=== PATIENT | male | born 1975 | race Caucasian/White ===

== ENCOUNTER → 2022-05-25 11:16 | Outpatient (BNVA) | payer OTHER, SELFPAY | PROVIDERS: Visit Provider Nurse Practitioner Family | DX: M25.50 Pain in unspecified joint (principal); M79.10 Myalgia, unspecified site; R53.83 Other fatigue; Z82.61 Family history of arthritis; F42.9 Obsessive-compulsive disorder, unspecified; F41.9 Anxiety disorder, unspecified; G47.00 Insomnia, unspecified; E78.2 Mixed hyperlipidemia | CPT/HCPCS: 80053; 80061; 85651; 86140; 86200; 86431; 86705; 86706; 86709; 86803; 87340 ==

== ENCOUNTER 2022-08-03 09:38 | Outpatient (CLI) | payer OTHER, SELFPAY ==
--- NOTE | 2022-08-03 10:00 | USCV_ITS ---
[facility] Age: 47 Gender: M : 1975 Exam Date: 08/03/2022 10:01 Ordering Phys: Caity Mares NP Technologist: AB Exam Location: [facility] – [place] Indication: DIZZINESS Risk Factors: Previous Vascular Surgery: Right Brachial BP: / Left Brachial BP: / Right Left Velocity (cm/s) Spectral Plaque Velocity (cm/s) Spectral Plaque Syst/Diast Broadening Syst/Diast Broadening 104.70/30.90 Prox CCA 100.30/ 35.30 90.40/ 34.20 Mid CCA 105.80/ 38.60 74.60/ 27.20 Distal CCA 84.90 / 36.40 89.70/ 29.10 Prox ICA 91.50 / 29.80 78.60/ 38.50 Mid ICA 73.90 / 37.50 70.10/ 36.70 Distal ICA 97.00 / 52.90 90.60 ECA 98.10 0.86 ICA/CCA 0.92 Antegrade Vertebral Antegrade 41.90/ 22.20 cm/s 65.10/ 32.00 cm/s Tri Subclavian Tri 119.1 108.8 0 0 CONCLUSIONS Right ICA stenosis <50%. Left ICA stenosis <50%. Normal antegrade Doppler flow noted in the right vertebral artery. Normal antegrade Doppler flow noted in the left vertebral artery. Quirino Payne MD (Electronically Signed) Final Date: 03 August 2022 13:29 S
== END 2022-08-03 09:39 | disposition home or self-care (01) ==
LOC: RAD 09:38
PROVIDERS: PCP Nurse Practitioner Family; Visit Provider Nurse Practitioner Family
DX: R42 Dizziness and giddiness (principal); E78.2 Mixed hyperlipidemia
CPT/HCPCS: 93880

== ENCOUNTER 2022-10-05 05:01 | Inpatient (IN) | payer OTHER, SELFPAY ==
[2022-10-05] VITALS (10 sets, daily range): BP systolic 105–123; BP diastolic 68–91; PULSE 62–91; RESP 14–18; TEMP 36.4–36.9; O2SAT 96–99; BMI 27.8
--- NOTE | 2022-10-05 05:15 | W.ED.EXTPRO ---
HPI - Extremity Problem General: Chief complaint: Extremity Injury, Upper Stated complaint: Finger injury on Right hand Time Seen by Provider: 10/05/22 05:03 Source: patient Mode of arrival: ambulatory Limitations: no limitations History of Present Illness: 47-year-old male who states that he cut his right middle finger on a piece of tin 3 days ago he states he has been taking IM Rocephin shots daily but he has had increased swelling along with pain denies any fever he states that he has pain with any movement. He states the pain is improved with rest rates his pain a 5 out of 10 currently Associated symptoms: Deny chest pain, fever(s) or rash Review of Systems Const: Denies: fever(s), chills, body aches or change in appetite Eyes: Denies: blurry vision or eye discomfort ENMT: Denies: throat pain or dental pain Card: Denies: chest pain Resp: Denies: dyspnea GI: Denies: abdominal pain, nausea, vomiting or diarrhea : Denies: dysuria Musc: Reports: extremity pain; Denies: neck pain or back pain Skin/Breast: Denies: rash Neuro: Denies: headache(s) Psych: Denies: depression Noam/Lymph: Denies: easy bruising All/Imm: Denies: urticaria PFSH ED PFSH: Medical History History of kidney stones Polyarthralgia Polycythemia Surgical History History of nasal surgery History of ureter stent Hx of facial fracture repair Family History Father Diabetes Hypertension Grandfather Diabetes Hypertension Cancer prostate Grandmother Cancer Hypertension Mother Hypertension Denies family history of Clotting disorder Bleeding disorder Social History Smoking and tobacco status: never smoked Second hand smoke exposure: No Alcohol intake: never Caregiver/support person: Yes Lives independently: Yes Household members: spouse Marital status: service: No Current occupational status: employed Pets and animals: Yes History of recent travel: No Current gender identity: Male Special ely needs: No Agree to transfusion: Yes Physical Exam Const: COMMON NORMALS: no acute distress, patient oriented x3 and healthy appearing HENMT: COMMON NORMALS: normocephalic and atraumatic HEAD & SCALP: normocephalic and atraumatic Eye: COMMON NORMALS: Equal, round and reactive pupils present and EOMs intact bilaterally PUPIL: Yes Equal, round and reactive pupils present Neck/C-Spine: COMMON NORMALS: full ROM and supple Chest: COMMONS NORMALS: normal inspection of the chest Resp: COMMON NORMALS: normal respiratory effort Cardio: COMMON NORMALS: regular rate, regular rhythm and No murmurs present (Cardio) RATE: regular rate RHYTHM: regular rhythm GI: INSPECTION: Yes normal to inspection Extremity: NARRATIVE EXTREMITY EXAM: Healing laceration to palmar aspect of the right middle digit he does have swelling along with erythema and pain to that finger. Neuro: COMMON NORMALS: patient oriented x3, moves all extremities and no focal motor deficits Psych: COMMON NORMALS: mental status grossly normal, Normal thought process present and cooperative THOUGHT PROCESS: Normal thought process present Skin: COMMON NORMALS: no rashes or lesions noted and no wounds GENERAL SKIN EXAM: no rashes or lesions noted Course Vital Signs: Vital signs: Vital Signs Temperature 97.6 F 10/05/22 05:08 Pulse Rate 80 10/05/22 05:12 Respiratory Rate 17 10/05/22 05:12 Blood Pressure 121/76 10/05/22 05:08 Pulse Oximetry 96 10/05/22 05:12 Oxygen Delivery Me thod 10/05/22 05:12 MDM - Extremity (Nontraumatic) Medical Decision Making Patient presents here with cellulitis to right middle finger with concerns of a possible early flexor tenosynovitis. I spoke to orthopedist we will plan to admit on IV antibiotics place in a splint and he will see patient for serial exams patient admitted to the hospitalist with orthopedics consulted. Discharge Plan Discharge Patient Disposition: Admitted As Inpatient Clinical Impression: Cellulitis of finger Qualifiers: Laterality: right Qualified Code(s): L03.011 - Cellulitis of right finger Condition: Stable Prescriptions: No Action diphenhydramine-acetaminophen [Tylenol PM Extra Strength] 25-500 mg tablet 1 tab PO .hs PRN zolpidem [Ambien] 10 mg tablet 10 mg PO .QHS 30 Days Qty: 30 0RF sertraline 100 mg tablet See Rx Instructions .ROUTE .COMPLEX Qty: 45 5RF Dose Instruction: TAKE 1 AND 1/2 TABLETS BY MOUTH DAILY Rx Instructions: TAKE 1 AND 1/2 TABLETS BY MOUTH DAILY meloxicam 15 mg tablet 15 mg PO DAILY 90 Days Qty: 90 1RF simvastatin 20 mg tablet 20 mg PO .QHS 90 Days Qty: 90 1RF cephalexin 500 mg capsule 500 mg PO TID Qty: 30 0RF Coding Level of Care Code ED Pesticide Chemist for Chg Fwd Exam Comprehensive
[2022-10-05] MEDS: vancomycin 1,000 MG in sodium chloride 0.9% 250 ML 250 MG IV (05:30)
[2022-10-05 05:45] LABS: Basophils % 0.3 %; Eosinophils # 0.6 10^3/uL (0.0-0.8); Eosinophils % 6.9 %; Hematocrit 41.7 % (42.0-52.0); Hemoglobin 14.6 g/dL (11.7-16.6); Lymphocytes % 11.4 %; Mean Corpuscular Hemoglobin 31.3 pg (28.0-34.0); Mean Corpuscular Volume 89.5 fl (80-94); Mean Platelet Volume 9.4 fL (7.4-10.4); Monocytes # 0.6 10^3/uL (0.2-0.9); Monocytes % 6.7 %; Neutrophils # 6.79 10^3/uL (1.8-7.7); Neutrophils % 74.2 %; Nucleated Red Blood Cells % 0 %; Platelet Count 210 10^3/cmm (130-400); Red Blood Count 4.66 10^6/uL (4.1-5.3); Red Cell Distribution Width 12.1 % (12.1-15.1); White Blood Count 9.2 10^3/uL (4.0-10.0)
[2022-10-05 05:46] LABS: Erythrocyte Sedimentation Rate 39 mm/hr (0-10)
--- NOTE | 2022-10-05 05:51 | PM.HP ---
Providers/Chief Complaint Admitting Physician: Akash Sánchez Chief Complaint: Finger injury on Right hand History of Present Illness Pleasant 47-year-old gentleman presented to ER due to swelling, warmth, erythema, severe tenderness of right middle finger after an injury about a week ago with a piece of metal. He has been seen by his primary provider has been taking Keflex, in the last 3 days also has been receiving Rocephin injections. Initially swelling had gone down, however, in the last day or so it has worsened again. He states he has been having fever spikes at home, he was having night sweats last night. He has been having some nausea. He also feels that perhaps antibiotics had made him constipated. He is able to move the finger, although it is quite swollen, and very tender to touch. Review of Systems Const: Reports: fever(s) and diaphoresis Eyes: Denies: change in vision, eye discomfort or eye redness ENMT: Denies: throat pain, oral sores or ear or mastoid pain Card: Denies: chest pain, edema, pre-syncope or dyspnea on exertion Resp: Denies: dyspnea, productive cough, change in phlegm color or hemoptysis GI: Reports: nausea and constipation; Denies: abdominal pain, vomiting, diarrhea, hematochezia or melena : Denies: flank pain, difficulty urinating, urinary frequency or hematuria Musc: Reports: extremity pain, extremity swelling and limited range of motion; Denies: back pain, joint swelling or joint redness Skin/Breast: Denies: rash or new lesions Neuro: Denies: headache(s), numbness in extremities, weakness in extremities, dizziness, confusion or seizure-like activity Endo: Denies: polyuria or polydipsia Noam/Lymph: Denies: easy bleeding or tender lymph nodes All/Imm: Denies: urticaria or tongue swelling Medications/Allergies Home Medications Medication Instructions Recorded Confirmed Last Taken Type diphenhydramine 25 1 tab PO .hs PRN 04/07/21 05/25/22 Unknown History mg-acetaminophen 500 mg tablet (Tylenol PM Extra Strength) meloxicam 15 mg tablet 15 mg PO DAILY 90 days #90 tabs 05/25/22 05/25/22 Unknown Rx sertraline 100 mg tablet See Rx Instructions .Route 06/30/22 06/30/22 Unknown Rx .COMPLEX #45 tabs simvastatin 20 mg tablet 20 mg PO .QHS 90 days #90 tabs 05/25/22 Unknown Rx zolpidem 10 mg tablet (Ambien) 10 mg PO .QHS 30 days #30 tabs 05/25/22 05/25/22 Unknown Rx cephalexin 500 mg capsule 500 mg PO TID #30 caps 10/02/22 Unknown Rx Allergies Allergy/AdvReac Type Severity Reaction Status Date / Time No Known Allergies Allergy Verified 10/05/22 05:11 PFSH Acute PFSH: Medical History History of kidney stones Polyarthralgia Polycythemia Surgical History History of nasal surgery History of ureter stent Hx of facial fracture repair Family History Father Diabetes Hypertension Grandfather Diabetes Hypertension Cancer prostate Grandmother Cancer Hypertension Mother Hypertension Denies family history of Clotting disorder Bleeding disorder Social History Smoking and tobacco status: never smoked Second hand smoke exposure: No Alcohol intake: never Caregiver/support person: Yes Lives independently: Yes Household members: spouse Marital status: service: No Current occupational status: employed Pets and animals: Yes History of recent travel: No Current gender identity: Male Special ely needs: No Agree to transfusion: Yes Vitals/I&O/Wt Last Vital Signs Temp 97.6 F 10/05/22 05:08 Pulse 82 10/05/22 05:46 Resp 16 10/05/22 05:46 BP 108/91 10/05/22 05:46 Pulse Ox 99 10/05/22 05:46 O2 Del Method 10/05/22 05:46 Weight last 48 hrs Weight 90.718 kg Physical Exam Narrative: Accompanied by his . Const: COMMON NORMALS: patient oriented x3 and alert GENERAL APPEARANCE: cooperative ORIENTATION/CONSCIOUSNESS: Yes awake HENMT: COMMON NORMALS: oropharynx normal Neck/C-Spine: COMMON NORMALS: no JVD Resp: COMMON NORMALS: normal respiratory effort and clear to auscultation bilaterally AUSCULTATION: clear to auscultation bilaterally Cardio: COMMON NORMALS: no JVD, regular rhythm, S1 normal heart sound present, S2 normal heart sound present and No murmurs present (Cardio) RHYTHM: regular rhythm HEART SOUNDS: S1 normal heart sound present and S2 normal heart sound present GI: COMMON NORMALS: Normal to inspection, nondistended, normoactive bowel sounds present, Soft to palpation and non-tender PALPATION: Yes Soft to palpation Extremity: COMMON NORMALS: no joint enlargement and no pedal edema OTHER: Swelling, erythema, warmth right third digit, horizontal cut without purulent discharge on palmar surface of proximal phalanx. Tender on palpation. Neuro: COMMON NORMALS: patient oriented x3 and moves all extremities SENSORIUM/ORIENTATION: Yes alert Skin: COMMON NORMALS: no rashes or lesions noted GENERAL SKIN EXAM: no rashes or lesions noted Data : 10/05/22 05:25 10/05/22 05:25 A&P Assessment and plan (1) Cellulitis of finger: Concern for possible tenosynovitis. Cellulitis, wound infection of third middle finger. Not responsive to cephalexin and ceftriaxone injections last 3 days. Continue Mata antibiotics with Zosyn, vancomycin. Orthopedic assessment. Splint is placed in ER. Qualifiers: Laterality: right Qualified Code(s): L03.011 - Cellulitis of right finger Plan Fever Nausea: Antiemetic as needed Constipation: MiraLAX. Magnesium hydroxide as needed. Reduced GFR: Denies CKD, but states chronically reduced GFR. Discussed with him to avoid NSAIDs including meloxicam. Attestations Medical Necessity Statement*: Admission of over 2 midnights anticipated for assessment management of an improving cellulitis despite outpatient treatment with antibiotics, including IM antibiotic injections with ceftriaxone, possible tenosynovitis of middle finger of right hand. Coding Level of Care Code Acute Hooker Inspector for zulema Agudelo Diagnoses Cellulitis of finger L03.011 Laterality: right
[2022-10-05 05:56] LABS: Anion Gap 15.7 (5-19); Blood Urea Nitrogen 18 mg/dL (6-20); C Reactive Protein 70.1 mg/L (0.0-4.9); Carbon Dioxide 23 mmol/L (22-29); Chloride 104 mmol/L (98-107); Glomerular Filtration Rate 58.9 mL/min (90-130); Glucose 111 mg/dL (65-115); Osmolality Calculated 291 mOsm/kg (285-295); Potassium 3.7 mmol/L (3.5-5.1); Sodium 139 mmol/L (136-145)
[2022-10-05] MEDS: piperacillin-tazobactam 3.375 GM in sodium chloride 0.9% (plus) 50 ML IV ×3 (06:30→21:05)
[2022-10-05] MEDS: heparin 5,000 unit/mL INJ 1 mL 5000 UNIT SUBCUT ×2 (09:27→21:06)
[2022-10-05] MEDS: polyethylene glycol 3350 Pkt 17 gm PO ×2 (09:27→18:10)
--- NOTE | 2022-10-05 10:40 | P.CONIM_ITS ---
Providers/Reason For Consult Consulting Physician/Specialty*: Kael Botello DO/orthopedic surgery Reason for Consult*: Right middle finger infection (rule out flexor teno synovitis) Requesting Physician: Dr. Mary Leiva Attending Physician: Edwin Burdick MD History of Present Illness History of Present Illness Sam Ulloa is a 47 year old male who presents to the emergency depart [facility] with complaints of right middle finger infection. Patient states that roughly a week ago he had a cut on the volar aspect of his middle finger just proximal to the PIP joint. He states this was superficial he had no decrease sensation and was able to move afterwards. This was left alone he states he was doing okay except for a couple days ago started to look red and swollen and tender to palpation. He had decreased range of motion. He was given p.o. antibiotics for the past 3 days. He has failed p.o. antibiotics and due to this worsening and becoming more painful he presented to emergency department for evaluation. Emergency department team concern for patient having right middle finger flexor tenosynovitis. At this point time internal medicine was contacted and patient was admitted for IV antibiotics due to failure to respond to conservative treatment. Orthopedic surgery team was consulted for evaluation. On review of patient's labs WBC count 9.2, ESR 39 CRP 70. Patient's been placed in a volar splint and elevated. He has been started on IV antibiotics orthopedic surgery team was consulted. Patient denies any fevers chills chest pain shortness of breath nausea or vomiting Review of Systems General: Reports: 10 or more systems reviewed and unremarkable except in HPI and below Medications/Allergies Home Medications Medication Instructions Recorded Confirmed Last Taken Type diphenhydramine 25 1 tab PO BEDTIME PRN Pain 04/07/21 10/05/22 Unknown History mg-acetaminophen 500 mg tablet (Tylenol PM Extra Strength) meloxicam 15 mg tablet 15 mg PO DAILY 90 days #90 tabs 05/25/22 10/05/22 Unknown Rx cephalexin 500 mg capsule 500 mg PO TID #30 caps 10/02/22 10/05/22 Unknown Rx sertraline 100 mg tablet 150 mg PO DAILY 10/05/22 10/05/22 Unknown History Allergies Allergy/AdvReac Type Severity Reaction Status Date / Time No Known Allergies Allergy Verified 10/05/22 08:56 Current Medications Generic Name Dose Route Start Last Admin Trade Name Freq PRN Reason Stop Dose Admin Heparin Sodium (Porcine) 5,000 unit 10/05/22 08:24 10/05/22 09:27 Heparin 5,000 Unit/Ml Inj 1 Ml SUBCUT 5,000 unit Q12H TENZIN Administration Polyethylene Glycol 17 gm 10/05/22 09:00 10/05/22 09:27 Polyethylene Glycol 3350 Pkt 17 Gm PO 17 gm BID TENZIN Administration PFSH Acute PFSH: Medical History (Updated 10/05/22 @ 22:13 by Kael Botello DO) Flexor tenosynovitis of finger History of kidney stones Polyarthralgia Polycythemia Surgical History History of nasal surgery History of ureter stent Hx of facial fracture repair Family History Father Diabetes Hypertension Grandfather Diabetes Hypertension Cancer prostate Grandmother Cancer Hypertension Mother Hypertension Denies family history of Clotting disorder Bleeding disorder Social History Smoking and tobacco status: never smoked Second hand smoke exposure: No Alcohol intake: never Caregiver/support person: Yes Lives independently: Yes Household members: spouse Marital status: service: No Current occupational status: employed Pets and animals: Yes History of recent travel: No Current gender identity: Male Special ely needs: No Agree to transfusion: Yes Vitals/I&O/Wt Last Vital Signs Temp 97.9 F 10/05/22 08:24 Pulse 62 10/05/22 08:24 Resp 16 10/05/22 08:24 BP 123/78 10/05/22 08:24 Pulse Ox 97 10/05/22 08:24 O2 Del Method 10/05/22 06:45 10/04/22 10/05/22 10/05/22 22:59 06:59 14:59 Intake Total 300 / 300 Balance 300 / 300 Weight last 48 hrs Weight 200 lb Weight 200 lb Physical Exam Narrative: Examination of the right hand demonstrates fusiform swelling of the right middle finger. Patient is holding right middle finger in flexed postur ing. He has severe pain with passive range of motion of the finger. He has severe tenderness to palpation along the flexor tendon sheath of the right middle finger. He has severe tenderness to palpation over the A1 mandie. He has a superficial laceration over the palmar aspect just proximal to the PIP joint of the right middle finger this appears to be well-healed. Unable to assess flexion and extension secondary to patient's pain. He is unable to make a fist due to pain and swelling. Fingertips are warm and well-perfused. Sensation intact to light touch distally at the radial and ulnar digital nerves. Sensation intact light touch the radial/ulnar/median nerve distribution. Patient has no tenderness over the carpal tunnel of the hypothenar eminence or the thenar eminences. No deep hand space abscess noted. He has no tenderness palpation over the adjacent A1 pulleys of the index and ring finger. He has no erythema tracking proximally. He does appear to have palpable fluctuance over the palmar aspect of the middle finger, near laceration. Const: COMMON NORMALS: no acute distress and average body habitus HENMT: COMMON NORMALS: normocephalic and atraumatic HEAD & SCALP: normocephalic and atraumatic Resp: COMMON NORMALS: normal respiratory effort and No retractions Cardio: COMMON NORMALS: Peripheral pulses 2+ throughout PERIPHERAL PULSES: Peripheral pulses 2+ throughout Data : 10/05/22 05:25 10/05/22 05:25 Xray Ortho: My impression: Review of the x-rays of the right hand 3 views personally interpreted by myself demonstrating no acute fracture dislocation bony erosions. There is no foreign bodies noted. There is fusiform swelling noted at the right middle finger. A&P Assessment and plan (1) Cellulitis of finger: Qualifiers: Laterality: right Qualified Code(s): L03.011 - Cellulitis of right finger (2) Flexor tenosynovitis of finger: Plan Patient may have diet today, n.p.o. at midnight Patient elevated in volar splint and elevated above the level of the heart Ice as needed Pain control IV antibiotics Labs reviewed Internal medicine is primary X-ray reviewed Reevaluate tomorrow morning, n.p.o. at midnight if patient fails to clinically improve will need OR for right middle finger irrigation and debridement flexor tendon sheath MDM: Sam is a pleasant 47-year-old gentleman who sustained a laceration to the palmar aspect of his right middle finger. This is progressively worsened he was treated with outpatient antibiotics and failed to respond to conservative treatment. He presented the emergency department concerning findings for right middle finger infection possible flexor tenosynovitis. He was placed in a volar splint elevation IV antibiotics as well as pain medication to see how he responds to conservative treatment. He is was given a diet today. He is n.p.o. at midnight. On my evaluation he does have a noticeable right middle finger infection. Does have some palpable fluctuance over the palmar aspect of P1. He does have all 4 Knievel signs on examination. At this point time we will see how he responds to conservative treatment today will be n.p.o. at midnight and r echeck tomorrow morning. Patient and understand agree with current plan. All questions answered at this time. Consult Attestations Medical Necessity Statement: Patient has right middle finger infection requiring antibiotics Coding Level of Care Code Acute Water/Wastewater Project Manager for Lydia Agudelo Diagnoses Cellulitis of finger L03.011 Laterality: right Flexor tenosynovitis of finger M65.9 Time Spent (min) 50
--- NOTE | 2022-10-05 12:17 | XR_ITS ---
WS: [id number] Right hand, 3 views, 10/05/2022 Clinical Data: right finger infection Comparison: None. Findings: No fractures or dislocations are seen. The soft tissues are unremarkable. The joint space s are normal No bone destruction or erosion is seen. XR/XR hand RT min 3V* [id number] Impression: Negative right hand.
[2022-10-05] MEDS: acetaminophen 325 mg Tablet 650 MG PO (14:33)
[2022-10-05] MEDS: HYDROcodone-acetaminophen 5-325 mg Tablet 1 TAB PO ×2 (16:33→21:04)
[2022-10-05] MEDS: vancomycin 1,500 MG/300 ML PIGGYBACK 200 MG IV (16:36)
[2022-10-05] MEDS: sertraline 100 mg Tablet 150 MG PO (21:03)
[2022-10-06] VITALS (13 sets, daily range): BP systolic 116–160; BP diastolic 70–95; PULSE 75–110; RESP 15–18; TEMP 36.3–37.3; O2SAT 95–100
[2022-10-06] MEDS: HYDROcodone-acetaminophen 5-325 mg Tablet 1 TAB PO (01:20)
[2022-10-06] MEDS: vancomycin 1,500 MG/300 ML PIGGYBACK 200 MG IV ×2 (04:29→17:53)
[2022-10-06 06:00] LABS: Basophils # 0.1 10^3/uL (0.0-0.1); Basophils % 0.8 %; Eosinophils # 0.6 10^3/uL (0.0-0.8); Hemoglobin 14.2 g/dL (11.7-16.6); Lymphocytes # 1.5 10^3/uL (0.8-4.8); Lymphocytes % 20.1 %; Mean Corpuscular HGB Conc 33.8 g/dL (30.0-36.0); Mean Corpuscular Hemoglobin 30.5 pg (28.0-34.0); Mean Corpuscular Volume 90.3 fl (80-94); Mean Platelet Volume 9.1 fL (7.4-10.4); Monocytes # 0.6 10^3/uL (0.2-0.9); Monocytes % 7.9 %; Neutrophils # 4.79 10^3/uL (1.8-7.7); Neutrophils % 62.7 %; Nucleated Red Blood Cells % 0 %; Platelet Count 223 10^3/cmm (130-400); Red Blood Count 4.65 10^6/uL (4.1-5.3); Red Cell Distribution Width 12.1 % (12.1-15.1); White Blood Count 7.6 10^3/uL (4.0-10.0)
[2022-10-06 06:25] LABS: Anion Gap 12.7 (5-19); Blood Urea Nitrogen 10 mg/dL (6-20); Calcium 8.9 mg/dL (8.5-10.5); Carbon Dioxide 27 mmol/L (22-29); Chloride 102 mmol/L (98-107); Creatinine Clr Calc Pharmacy 86.7475; Glomerular Filtration Rate 64.6 mL/min (90-130); Glucose 101 mg/dL (65-115); Osmolality Calculated 285 mOsm/kg (285-295); Potassium 3.7 mmol/L (3.5-5.1); Sodium 138 mmol/L (136-145)
[2022-10-06] MEDS: piperacillin-tazobactam 3.375 GM in sodium chloride 0.9% (plus) 50 ML IV ×2 (06:34→20:56)
[2022-10-06] MEDS: heparin 5,000 unit/mL INJ 1 mL 5000 UNIT SUBCUT ×2 (08:46→20:57)
[2022-10-06] MEDS: sertraline 100 mg Tablet 150 MG PO (08:46)
[2022-10-06] MEDS: ceFAZolin 2,000 MG in sodium chloride 0.9% (plus) 50 ML 100 MG IV (08:46)
[2022-10-06] MEDS: ketorolac 30 mg/mL INJ IVP (08:47)
[2022-10-06] MEDS: acetaminophen 1,000 MG/100 ML PIGGYBACK 400 MG IV (08:48)
[2022-10-06] MEDS: polyethylene glycol 3350 Pkt 17 gm PO ×2 (08:49→17:52)
--- NOTE | 2022-10-06 09:43 | PM.PN ---
Subjective Subjective: Patient seen and examined this morning. Persistent pain overnight controlled with medications. Patient has been on IV antibiotics elevation and volar splint overnight. States he has had minimal to no improvement with conservative treatment. Has been n.p.o. since midnight. Plan will be for surgery today for right middle finger irrigation and debridement Vitals/I&O/Wt Last Vital Signs Temp 98.7 F 10/06/22 07:12 Pulse 75 10/06/22 07:12 Resp 18 10/06/22 07:12 BP 133/79 10/06/22 07:12 Pulse Ox 96 10/06/22 07:12 O2 Del Method 10/06/22 07:12 10/05/22 10/06/22 10/06/22 22:59 06:59 14:59 Intake Total 590 / 590 350 / 940 Output Total 650 / 775 Balance 590 / 465 -300 / 165 Weight last 48 hrs Weight 200 lb Weight 200 lb Physical Exam Narrative: Examination of the right middle finger continues to show persistent fusiform swelling palpable fluctuance on the palmar aspect of the right middle finger. Erythema and redness around the middle finger. Tenderness over the A1 mandie no carpal tunnel hypothenar and thenar eminence tenderness to palpation no tenderness palpation at the spaces of the hand. Flexed posturing and pain on passive extension. Sensation tact light touch distally. He is able to slightly bend and extend consistent with flexor extensor tendons intact however limited examination secondary to his pain infection radial pulse 2+. Brisk capillary refill less than 2 seconds at the fingers. Data : 10/06/22 05:45 10/06/22 05:45 A&P Assessment and plan (1) Flexor tenosynovitis of finger: (2) Cellulitis of finger: Qualifiers: Laterality: right Qualified Code(s): L03.011 - Cellulitis of right finger Plan N.p.o. since midnight IV antibiotics Pain control Elevation Ice Volar splint Internal medicine is primary Nonweightbearing right upper extremity Patient's failed to respond to conservative treatment. He was seen evaluated this morning. Given his lack of clinical improvement persistent signs consistent with flexor tenosynovitis would recommend right middle finger irrigation and debridement. We talked about the surgery as far as his risk benefits complication alternatives to treatment options. His risks of surgery include but are not limited to make it better make it worse, worsening infection further surgeries, injury to nerves or vessels, injury to tendons. Understanding these risks he agrees to proceed with surgical intervention. All questions been answered at this time. Plan to go to the OR later this morning for right middle finger irrigation and debridement Attestations Medical Necessity Statement*: Patient has right middle finger infection flexor tenosynovitis requiring hospitalization for IV antibiotics and surgical intervention Coding Level of Care Code Acute Independent Jeweler for [facility] Diagnoses Flexor tenosynovitis of finger M65.9 Cellulitis of finger L03.011 Laterality: right Time Spent (min) 25
--- NOTE | 2022-10-06 09:48 | W.PM.OPSUD ---
Surgery/Procedure H&P Update DATE OF PROCEDURE: October 06, 2022 DATE H&P PERFORMED: 10/05/22 CHANGES TO PREVIOUS DOCUMENTATION: None. All 4 Knievel signs with failure to respond to conservative treatment PREOP DIAGNOSIS: Right middle finger flexor tenosynovitis with abscess PRIMARY INDICATION FOR PROCEDURE: Right middle finger flexor tenosynovitis with abscess PLANNED PROCEDURE: Operation Date: 10/06/22 12:10 Proposed Procedures p I&D right middle finger(Right) - Kael Botello DO
[2022-10-06] MEDS: sodium chloride 0.9% 1,000 ML 30 ML IV (12:01)
--- NOTE | 2022-10-06 13:46 | ANES.PREANE2 ---
Pre-Anesthetic Assessment Height/Weight: Height 1.8 m Weight 90.718 kg Temp Pulse Resp BP Pulse Ox O2 Del Method 98.7 F 75 18 133/79 96 10/06/22 07:12 10/06/22 07:12 10/06/22 07:12 10/06/22 07:12 10/06/22 07:12 10/06/22 07:12 Preop Diagnosis: Right middle finger flexor tenosynovitis with abscess Operation Date: 10/06/22 12:10 Proposed Procedures p I&D right middle finger(Right) - Kael Ayan, DO Familial anesthetic complications: none Was Beta Cindy taken within 24 hours: N/A Was Clonidine taken within 24 hours: N/A Last intake: Intake Last Liquid Date 10/06/22 Last Liquid Time 08:00 Last Solid Date 10/05/22 Last Solid Time 22:00 Social No alcohol and No tobacco Exam alert, oriented x 3, clear to auscultation bilaterally and regular rate & rhythm Airway Submandibular: within normal limits Cervical ROM: within normal limits Mallampati: Class II Dentition: chipped Musc/skel Osteoarthritis/DJD Neuropsych Anxiety Anesthetic Plan ASA status: 2 Anesthesia: General Medications/Allergies Home Medications Medication Instructions Recorded Confirmed Last Taken Type diphenhydramine 25 1 tab PO BEDTIME PRN Pain 04/07/21 10/05/22 Unknown History mg-acetaminophen 500 mg tablet (Tylenol PM Extra Strength) meloxicam 15 mg tablet 15 mg PO DAILY 90 days #90 tabs 05/25/22 10/05/22 Unknown Rx cephalexin 500 mg capsule 500 mg PO TID #30 caps 10/02/22 10/05/22 Unknown Rx sertraline 100 mg tablet 150 mg PO DAILY 10/05/22 10/05/22 Unknown History Allergies Allergy/AdvReac Type Severity Reaction Status Date / Time No Known Allergies Allergy Verified 10/05/22 08:56 Current Medications Generic Name Dose Route Start Last Admin Trade Name Freq PRN Reason Stop Dose Admin Acetaminophen 650 mg 10/05/22 08:24 10/05/22 14:33 Acetaminophen 325 Mg Tablet PO 650 mg Q6H PRN Administration Mild/Mod Pain Or Temp >/= 101 Hydrocodone Bitart/Acetaminophen 1 tab 10/05/22 16:21 10/06/22 01:20 Hydrocodone-Acetaminophen 5-325 Mg Tablet PO 1 tab Q4H PRN Administration MODERATE PAIN Heparin Sodium (Porcine) 5,000 unit 10/05/22 08:24 10/06/22 08:46 Heparin 5,000 Unit/Ml Inj 1 Ml SUBCUT 5,000 unit Q12H TENZIN Administration Piperacillin Sod/Tazobactam 50 mls @ 12.5 mls/hr 10/05/22 13:30 10/06/22 06:34 Sod 3.375 gm/ Sodium Chloride IV 12.5 mls/hr Q8H TENZIN Administration Protocol Vancomycin/PEG/NADA/Lysine/Water 1,500 mg in 300 mls @ 200 mls/hr 10/05/22 17:00 10/06/22 06:13 Vancocin IV Infused Q12H TENZIN Infusion Sodium Chloride 1,000 mls @ 30 mls/hr 10/06/22 12:00 10/06/22 12:01 Sodium Chloride 0.9% IV 10/07/22 11:59 30 mls/hr .Q24H TENZIN Administration Polyethylene Glycol 17 gm 10/05/22 09:00 10/06/22 08:49 Polyethylene Glycol 3350 Pkt 17 Gm PO 17 gm BID TENZIN Administration Sertraline HCl 150 mg 10/05/22 21:00 10/06/22 08:46 Sertraline 100 Mg Tablet PO 150 mg DAILY TENZIN Administration PFSH Anesthesia Medical History (Updated 10/05/22 @ 22:13 by Kael Botello DO) Flexor tenosynovitis of finger History of kidney stones Polyarthralgia Polycythemia Surgical History History of nasal surgery History of ureter stent Hx of facial fracture repair Family History Father Diabetes Hypertension Grandfather Diabetes Hypertension Cancer prostate Grandmother Cancer Hypertension Mother Hypertension Denies family history of Clotting disorder Bleeding disorder Social History Smoking and tobacco status: never smoked Second hand smoke exposure: No Alcohol intake: never Caregiver/support person: Yes Lives independently: Yes Household members: spouse Marital status: service: No Current occupational status: employed Pets and animals: Yes History of recent travel: No Current gender identity: Male Special ely needs: No Agree to transfusion: Yes Data Anesthesia : 10/06/22 05:45 10/06/22 05:45 Short CBC 10/05/22 10/06/22 Range/Units 05:25 05:45 WBC 9.2 7.6 (4.0-10.0) 10^3/uL Hgb 14.6 14.2 (11.7-16.6) g/dL Hct 41.7 L 42.0 (42.0-52.0) % MCV 89.5 90.3 (80-94) fl Plt Count 210 223 (130-400) 10^3/cmm Neut % (Auto) 74.2 62.7 % Neut # (Auto) 6.79 4.79 (1.8-7.7) 10^3/uL BMP 10/05/22 10/06/22 05:25 05:45 Sodium 139 138 Potassium 3.7 3.7 Chloride 104 102 Carbon Dioxide 23 27 BUN 18 10 Creatinine 1.3 H 1.2 Glucose 111 101 Calcium 9.0 8.9 Coags 10/05/22 10/05/22 05:25 05:25 ESR 39 H C-Reactive Protein 70.1 H Cardiac Studies: No Data to Display
--- NOTE | 2022-10-06 13:54 | PM.PN ---
Subjective Subjective: Patient was seen and examined this morning, pain is better controlled has remained afebrile Medications: Medication Review Details: Generic Name Dose Route Start Last Admin Trade Name Mike PRN Reason Stop Dose Admin Acetaminophen 650 mg 10/05/22 08:24 10/05/22 14:33 Acetaminophen 32 5 Mg Tablet PO 650 mg Q6H PRN Administration Mild/Mod Pain Or Temp >/= 101 Hydrocodone Bitart /Acetaminophen 1 tab 10/05/22 16:21 10/06/22 01:20 Hydrocodone-Acet aminophen 5-325 Mg Tablet PO 1 tab Q4H PRN Administration MODERATE PAIN Heparin Sodium (Po rcine) 5,000 unit 10/05/22 08:24 10/06/22 08:46 Heparin 5,000 Un it/Ml Inj 1 Ml SUBCUT 5,000 unit Q12H TENZIN Administration Piperacillin Sod/T azobactam 50 mls @ 12.5 mls /hr 10/05/22 13:30 10/06/22 06:34 Sod 3.375 gm/ So dium Chloride IV 12.5 mls/hr Q8H TENZIN Administration Protocol Vancomycin/PEG/NAD A/Lysine/Water 1,500 mg in 300 m ls @ 200 mls/hr 10/05/22 17:00 10/06/22 06:13 Vancocin IV Infused Q12H TENZIN Infusion Sodium Chloride 1,000 mls @ 30 ml s/hr 10/06/22 12:00 10/06/22 12:01 Sodium Chloride 0.9% IV 10/07/22 11:59 30 mls/hr .Q24H TENZIN Administration Polyethylene Glyco l 17 gm 10/05/22 09:00 10/06/22 08:49 Polyethylene Gly col 3350 Pkt 17 Gm PO 17 gm BID TENZIN Administration Sertraline HCl 150 mg 10/05/22 21:00 10/06/22 08:46 Sertraline 100 M g Tablet PO 150 mg DAILY TENZIN Administration Vitals/I&O/Wt Last Vital Signs Temp 98.7 F 10/06/22 07:12 Pulse 75 10/06/22 07:12 Resp 18 10/06/22 07:12 BP 133/79 10/06/22 07:12 Pulse Ox 96 10/06/22 07:12 O2 Del Method 10/06/22 07:12 11/09/1610/06/22 10/06/22 22:59 06:59 14:59 Intake Total 590 / 590 350 / 940 Output Total 650 / 775 Balance 590 / 465 -300 / 165 Weight last 48 hrs Weight 90.718 kg Weight 90.718 kg Physical Exam Resp: COMMON NORMALS: clear to auscultation bilaterally EFFORT & INSPECTION: Yes symmetric chest movement AUSCULTATION: clear to auscultation bilaterally Cardio: COMMON NORMALS: regular rate, regular rhythm, S1 normal heart sound present, S2 normal heart sound present, No gallops present (Cardio), No murmurs present (Cardio), No rub (Cardio) and Peripheral pulses 2+ throughout RATE: regular rate RHYTHM: regular rhythm HEART SOUNDS: S1 normal heart sound present and S2 normal heart sound present PERIPHERAL PULSES: Peripheral pulses 2+ throughout GI: COMMON NORMALS: Normal to inspection, nondistended, normoactive bowel sounds present, Soft to palpation, non-tender, No hepatosplenomegaly present and no masses AUSCULTATION: Yes normoactive bowel sounds PALPATION: Yes Soft to palpation and Yes No hepatosplenomegaly present RECTAL EXAM: Yes deferred Extremity: COMMON NORMALS: no clubbing, cyanosis or edema and no pedal edema NARRATIVE EXTREMITY EXAM: Right third digit with erythema swelling, horizontal cut present Data : 10/06/22 05:45 10/06/22 05:45 A&P Assessment and plan (1) Cellulitis of finger: Concern for possible tenosynovitis. Cellulitis, wound infection of third middle finger. Not responsive to cephalexin and ceftriaxone injections last 3 days. Continue Mata antibiotics with Zosyn, vancomycin. Orthopedic assessment. Splint is placed in ER. Qualifiers: Laterality: right Qualified Code(s): L03.011 - Cellulitis of right finger Plan Fever Nausea: Antiemetic as needed Constipation: MiraLAX. Magnesium hydroxide as needed. Reduced GFR: Denies CKD, but states chronically reduced GFR. Discussed with him to avoid NSAIDs including meloxicam. Attestations Medical Necessity Statement*: Patient is still in hospital management of cellulitis, need for IV antibiotics. 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
--- NOTE | 2022-10-06 13:59 | P.OP_ITS ---
Brief Operative Note Date of procedure: 10/06/22 Pre-op diagnosis: Right middle finger flexor tenosynovitis, abscess Post-op diagnosis: same (and PIP joint infection) Procedure Done: Right middle finger irrigation and debridement, flexor tendon synovectomy and tenolysis, irrigation debridement PIP joint Surgeon: Kael Botello Estimated blood loss (mL): 30 Complications: None Post-op Plan: Patient taken to PACU in stable condition recovering well. Patient had extensive infection to right middle finger with volar abscess communicating into the flexor tendon sheath as well as disruption just proximal to the volar plate into the PIP joint capsule. At this point time would recommend elevation, ice, Toradol, IV antibiotics. Patient to return to the floor for IV antibiotic treatment. At this point time given his extensive his infection would recommend he stay on Sunday night with recheck of incision on Sunday. We will keep patient n.p.o. at midnight on Sunday night for reevaluation. 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
--- NOTE | 2022-10-06 14:19 | PM.PACU ---
PACU note Narrative: Patient recovered well in PACU taken to the floor in stable condition. Patient was wiggling his fingers sensation was intact light touch distally. Brisk capillary refill less than 2 seconds dressing on in place clean dry and intact return to the floor for IV antibiotics, Toradol, elevation plan will be for n.p.o. at midnight Sunday night for recheck of incision on Sunday Exam: awake Disposition: back to floor
--- NOTE | 2022-10-06 14:20 | P.OP_ITS ---
Operative Report Date of procedure: October 06, 2022 Pre-op diagnosis: Preop Diagnosis Right middle finger flexor tenosynovitis with abscess Post-op diagnosis: Right middle finger flexor tenosynovitis with abscess with communication to PIP joint Procedure done: Right middle finger irrigation and debridement, flexor tendon synovectomy and tenolysis, irrigation debridement PIP joint (wound size 8 cm x 1 cm x 2 cm) Specimens removed/disposition: Cultures aerobic and anaerobic of volar middle finger abscess fluid/flexor tendon synovial fluid Cultures aerobic and anaerobic PIP joint fluid Surgeon: Kael Botello DO Estimated blood loss: 30 mL 41min IV fluids: See anesthesia record Complications: None Findings: See operative report narrative Condition: stable Disposition: floor Brief History: Patient is a 47-year-old male with right middle finger flexor tenosynovitis. He was seen evaluated by the emergency department admitted by the hospitalist team and orthopedics was consulted. On evaluation he has findings concerning for flexor tenosynovitis he was treated conservatively with IV antibiotics elevation and Toradol he was seen evaluated the following morning to have no response to conservative treatment. He has been n.p.o. since midnight. He was seen evaluated by me this morning given his lack of response as well as persistent swelling and pain in all 4 Kn[place] signs recommend going to the OR for right middle finger irrigation and debridement. He understands his risk benefits complication alternatives of surgical and nonsurgical treatment options and agrees to proceed with surgical intervention. All questions answered at this time. Procedure: Patient was seen evaluate in the preoperative holding area. Consent was reviewed and signed with patient. The correct extremity was then marked. Patient was seen evaluate Anesthesia Department was then taken back to the operative suite once cleared by anesthesia. He then was transported onto the OR table right upper extremity was then placed on an arm table. He underwent anesthesia per the anesthesia department all bony prominences well-padded patient was appropriately secured to the bed. Nonsterile tourniquet applied to the right upper extremity arm. Patient received appropriate preoperative antibiotics. Right upper extremity was then prepped and draped in therapeutic fashion. Final timeout performed. Esmarch tourniquet was used exsanguinate the right upper extremity. Tourniquet was insufflated to 250 mmHg. Started with an oblique incision over the A1 mandie following patient's distal flexor tendon crease up to the MP joint and then follow-up in mid axial plane all the way to the level of the DIP and then an oblique incision was made at that fashion. I then made sharp scalpel excision through skin and subcutaneous tissue mobilized full-thickness skin flap I then utilized my Littler dissection scissors to then identify the radial and ulnar digital nerve bundles. Immediately utilizing my Littler dissection scissors to mobilize a full- thickness skin flap I encountered murky purulent appearing synovial fluid. This was then subsequently cultured. It was noted that this did communicate directly into the flexor tendon sheath and that had eroded at the A3 mandie. The A3 mandie was necrotic and insufficient at this time A2 as well as A4 were still intact. At this point time I released the a 1 mandie system. I then thoroughly evaluated the extent of the abscess and apparent flexor tenosynovitis. I utilized a rongeur to perform debridement of devitalized tissue of skin and subcutaneous tissue as well as fascia and tendon. Of note at the level of the PIP joint at the eroded A3 mandie visualized the flexor tendons and the other bellies of the flexor tendons were Significantly Adhered and Inflamed with Significant synovial thickening tissue. I then performed a tenolysis as well as tenosynovectomy of the FDS and FDP tendons. At this point time I was directly visualizing the volar plate there did appear to be a rent just proximal to the volar plate communicating into the PIP joint this fluid that came out of the PIP joint with range of motion did appear slightly murky it was subsequently cultured. At this point time I did have a concern that there was communication of the PIP joint and ordered for better evaluation my plan was for a dorsal incision. This point time I thoroughly irrigated then the volar incision as I placed an Angiocath proximally and then irrigated the flexor tendon sheath. The volar aspect of the incision was completely debrided to healthy bleeding tissue with care to protect the neurovascular bundles to both sides of the digit. In order to have better visualize the articular cartilage as well as a better irrigation I then placed the hand and made a small dorsal incision that was roughly 4 cm in length curvilinear around the PIP joint of the right middle finger I mobilized full-thickness skin flaps and then subsequently made a small arthrotomy between the lateral bands and central band. The arthrotomy had no residual synovial fluid. The joint was flexed and the articular cartilage appeared to be healthy and intact. I then utilized an Angiocath to thoroughly irrigate the PIP joint. This completed by extensive debridement of the right middle finger. Tourniquet was deflated hemostasis satisfactory capillary refill was intact. All culture swabs were then sent for microbiology. Hemostasis was satisfactory with bipolar electrocautery. I then closed the dorsal incision by closing the arthrotomy site reapproximated with Monocryl 4-0 suture. I then closed the dorsal incision with interrupted nylon mattress stitches. I then sequentially closed the volar/palmar incision with interrupted nylon suture. Patient had significant improvement and has edema as well as his range of motion to his right middle finger. Brisk capillary refill less than 2 seconds. The incisions were then dressed with Xeroform 4 x 4's Destiny wrap Curlex and a volar splint was then applied. Patient was then awakened from anesthesia and taken to PACU in stable condition. Disposition: Patient taken to PACU in stable condition. We will continue to monitor cultures. Return to the floor. To be nonweightbearing to the right upper extremity encourage range of motion as tolerated. Given the extent of the infection would recommend continued IV antibiotics for the next full 24 hours and then plan for n.p.o. at midnight on Sunday with plan for reevaluation and incision check on Sunday. Continue with elevation and IV Toradol. Patient and understand agree with current plan. All questions answered.
--- NOTE | 2022-10-06 15:10 | ANE.PACU2 ---
Inpatient post-anesthesia follow up: Airway intact: Yes Vital signs: Temperature 97.4 F Pulse Rate 84 Respiratory Rate 16 Blood Pressure 152/86 Pulse Oximetry 100 Oxygen Delivery Me thod Room Air Oxygen Flow Rate 6 Fraction of Inspir ed Oxygen Hydration adequate: Yes Nausea and vomiting: No Pain level: 3 Mental status: Baseline
[2022-10-06] MEDS: ketorolac 30 mg/mL INJ 15 MG IVP ×2 (15:27→20:54)
[2022-10-07] MEDS: ketorolac 30 mg/mL INJ 15 MG IVP ×4 (02:21→20:59)
[2022-10-07 03:38] LABS: Basophils % 0.3 %; Eosinophils # 0.1 10^3/uL (0.0-0.8); Hematocrit 39.3 % (42.0-52.0); Hemoglobin 13.5 g/dL (11.7-16.6); Lymphocytes # 1.7 10^3/uL (0.8-4.8); Lymphocytes % 15.1 %; Mean Corpuscular HGB Conc 34.4 g/dL (30.0-36.0); Mean Corpuscular Hemoglobin 30.6 pg (28.0-34.0); Mean Corpuscular Volume 89.1 fl (80-94); Mean Platelet Volume 8.9 fL (7.4-10.4); Monocytes # 0.8 10^3/uL (0.2-0.9); Monocytes % 7.2 %; Neutrophils # 8.51 10^3/uL (1.8-7.7); Neutrophils % 75.9 %; Nucleated Red Blood Cells % 0 %; Platelet Count 252 10^3/cmm (130-400); Red Blood Count 4.41 10^6/uL (4.1-5.3); Red Cell Distribution Width 11.6 % (12.1-15.1); White Blood Count 11.2 10^3/uL (4.0-10.0)
[2022-10-07 04:00] VITALS: BP 103/66; PULSE 76; RESP 17; TEMP 36.7; O2SAT 99
[2022-10-07 04:05] LABS: Anion Gap 14.8 (5-19); Blood Urea Nitrogen 13 mg/dL (6-20); Calcium 8.8 mg/dL (8.5-10.5); Carbon Dioxide 24 mmol/L (22-29); Chloride 104 mmol/L (98-107); Creatinine Clr Calc Pharmacy 86.7475; Glomerular Filtration Rate 64.6 mL/min (90-130); Glucose 118 mg/dL (65-115); Osmolality Calculated 289 mOsm/kg (285-295); Potassium 3.8 mmol/L (3.5-5.1); Sodium 139 mmol/L (136-145)
[2022-10-07 04:06] LABS: Vancomycin Trough 15.2 ug/mL (10-15)
[2022-10-07] MEDS: vancomycin 1,500 MG/300 ML PIGGYBACK 200 MG IV ×2 (04:07→17:24)
[2022-10-07] MEDS: piperacillin-tazobactam 3.375 GM in sodium chloride 0.9% (plus) 50 ML IV ×3 (05:58→21:19)
[2022-10-07 07:02] VITALS: BP 124/70; PULSE 73; RESP 16; TEMP 37; O2SAT 95
[2022-10-07] MEDS: sertraline 100 mg Tablet 150 MG PO (08:03)
[2022-10-07] MEDS: polyethylene glycol 3350 Pkt 17 gm PO (08:04)
[2022-10-07] MEDS: heparin 5,000 unit/mL INJ 1 mL 5000 UNIT SUBCUT ×2 (08:04→21:20)
--- NOTE | 2022-10-07 08:30 | PM.PN ---
Subjective Subjective: Patient seen and evaluated this morning. He is progressing well postoperatively his pain is significantly decreased since prior to surgery. He has not required much pain medication. Continued IV antibiotics. Given the extent of his infection would recommend continued IV antibiotics and reevaluation tomorrow morning. Will be n.p.o. at midnight. We will take down his dressing tomorrow. Vitals/I&O/Wt Last Vital Signs Temp 98.6 F 10/07/22 07:02 Pulse 73 10/07/22 07:02 Resp 16 10/07/22 07:02 BP 124/70 10/07/22 07:02 Pulse Ox 95 10/07/22 07:02 O2 Del Method 10/07/22 07:02 O2 Flow Rate 6 10/06/22 13:56 10/06/22 10/07/22 10/07/22 22:59 06:59 14:59 Intake Total 540 / 740 350 / 1090 Output Total 350 / 380 Balance 540 / 710 0 / 710 Weight last 48 hrs Weight 200 lb Physical Exam Narrative: Examination of the right hand demonstrates right middle finger tip is warm well-perfused brisk capillary refill less than 2 seconds. Volar splint on in place dressing left on splint limits examination. He is able to wiggle his finger and he does tolerate passive extension without any pain or discomfort. Sensation tact light touch distally. Data : 10/07/22 03:31 10/07/22 03:31 Micro: Gram Stain Final 10/07/22-1702 Result RARE GRAM POSITIVE RODS GRAM POSITIVE COCCI Currently abscess cultures no growth day 1. Negative Gram stain and abscess cultures on the PIP joint fluid. A&P Assessment and plan (1) Flexor tenosynovitis of finger: (2) Cellulitis of finger: Qualifiers: Laterality: right Qualified Code(s): L03.011 - Cellulitis of right finger Plan Regular diet today N.p.o. at midnight Elevate and ice Volar splint IV antibiotics per primary Internal medicine as primary we will reevaluate patient tomorrow morning with dressing takedown Attestations Medical Necessity Statement*: Patient had right middle finger flexor tenosynovitis with abscess requiring IV antibiotics and surgical intervention. 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
[2022-10-07 11:18] VITALS: BP 116/72; PULSE 77; RESP 16; TEMP 36.8; O2SAT 97
[2022-10-07 14:00] VITALS: BP 149/60; PULSE 92; RESP 18; TEMP 36.7; O2SAT 95
--- NOTE | 2022-10-07 17:21 | PM.PN ---
Subjective Subjective: Patient was seen and examined this morning, doing better, afebrile, Medications: Medication Review Details: Generic Name Dose Route Start Last Admin Trade Name Mike PRN Reason Stop Dose Admin Acetaminophen 650 mg 10/05/22 08:24 10/05/22 14:33 Acetaminophen 32 5 Mg Tablet PO 650 mg Q6H PRN Administration Mild/Mod Pain Or Temp >/= 101 Hydrocodone Bitart /Acetaminophen 1 tab 10/05/22 16:21 10/06/22 01:20 Hydrocodone-Acet aminophen 5-325 Mg Tablet PO 1 tab Q4H PRN Administration MODERATE PAIN Heparin Sodium (Po rcine) 5,000 unit 10/05/22 08:24 10/07/22 08:04 Heparin 5,000 Un it/Ml Inj 1 Ml SUBCUT 5,000 unit Q12H TENZIN Administration Piperacillin Sod/T azobactam 50 mls @ 12.5 mls /hr 10/05/22 13:30 10/07/22 13:19 Sod 3.375 gm/ So dium Chloride IV 12.5 mls/hr Q8H TENZIN Administration Protocol Vancomycin/PEG/NAD A/Lysine/Water 1,500 mg in 300 m ls @ 200 mls/hr 10/05/22 17:00 10/07/22 05:58 Vancocin IV Infused Q12H TENZIN Infusion Ketorolac Trometha mine 15 mg 10/06/22 14:35 10/07/22 15:31 Ketorolac 30 Mg/ Ml Inj IVP 10/11/22 14:34 15 mg Q6H TENZIN Administration Sertraline HCl 150 mg 10/05/22 21:00 10/07/22 08:03 Sertraline 100 M g Tablet PO 150 mg DAILY TENZIN Administration Vitals/I&O/Wt Last Vital Signs Temp 98.1 F 10/07/22 14:00 Pulse 92 10/07/22 14:00 Resp 18 10/07/22 14:00 BP 149/60 10/07/22 14:00 Pulse Ox 95 10/07/22 14:00 O2 Del Method 10/07/22 11:18 O2 Flow Rate 6 10/06/22 13:56 10/07/22 10/07/22 10/07/22 06:59 14:59 22:59 Intake Total 350 / 1090 530 / 530 Output Total 350 / 380 Balance 0 / 710 530 / 530 Physical Exam Resp: COMMON NORMALS: clear to auscultation bilaterally EFFORT & INSPECTION: Yes symmetric chest movement AUSCULTATION: clear to auscultation bilaterally Cardio: COMMON NORMALS: regular rate, regular rhythm, S1 normal heart sound present, S2 normal heart sound present, No gallops present (Cardio), No murmurs present (Cardio), No rub (Cardio) and Peripheral pulses 2+ throughout RATE: regular rate RHYTHM: regular rhythm HEART SOUNDS: S1 normal heart sound present and S2 normal heart sound present PERIPHERAL PULSES: Peripheral pulses 2+ throughout GI: COMMON NORMALS: Normal to inspection, nondistended, normoactive bowel sounds present, Soft to palpation, non-tender, No hepatosplenomegaly present and no masses AUSCULTATION: Yes normoactive bowel sounds PALPATION: Yes Soft to palpation and Yes No hepatosplenomegaly present RECTAL EXAM: Yes deferred Extremity: COMMON NORMALS: no clubbing, cyanosis or edema and no pedal edema NARRATIVE EXTREMITY EXAM: Right third digit with erythema swelling, horizontal cut present Data : 10/07/22 03:31 10/07/22 03:31 Micro: Microbiology 10/06/22 12:36 Gram Stain - Final Finger - #1 Abscess Culture - Preliminary 10/06/22 12:36 Gram Stain - Final Finger - #2 Anaerobic Culture - Preliminary Abscess Culture - Preliminary 10/06/22 12:36 Anaerobic Culture - Preliminary Finger - #2 A&P Assessment and plan (1) Cellulitis of finger: Concern for possible tenosynovitis. Cellulitis, wound infection of third middle finger. Not responsive to cephalexin and ceftriaxone injections last 3 days. Continue Mata antibiotics with Zosyn, vancomycin. Orthopedic assessment. Splint is placed in ER. Qualifiers: Laterality: right Qualified Code(s): L03.011 - Cellulitis of right finger Plan Fever Nausea: Antiemetic as needed Constipation: MiraLAX. Magnesium hydroxide as needed. Reduced GFR: Denies CKD, but states chronically reduced GFR. Discussed with him to avoid NSAIDs including meloxicam. Attestations Medical Necessity Statement*: Patient needs to be in hospital for the management of cellulitis. 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
[2022-10-07 19:51] VITALS: BP 114/62; PULSE 66; RESP 17; TEMP 36.9; O2SAT 97
[2022-10-07 23:43] VITALS: BP 126/69; PULSE 76; RESP 17; TEMP 36.6; O2SAT 97
[2022-10-08] MEDS: ketorolac 30 mg/mL INJ 15 MG IVP (02:16)
[2022-10-08 04:00] VITALS: BP 116/68; PULSE 81; RESP 17; TEMP 36.6; O2SAT 98
[2022-10-08] MEDS: vancomycin 1,500 MG/300 ML PIGGYBACK 200 MG IV (04:26)
[2022-10-08 05:25] LABS: Basophils # 0.1 10^3/uL (0.0-0.1); Basophils % 1.1 %; Eosinophils # 0.6 10^3/uL (0.0-0.8); Eosinophils % 7.7 %; Hematocrit 37.4 % (42.0-52.0); Hemoglobin 12.9 g/dL (11.7-16.6); Lymphocytes # 1.7 10^3/uL (0.8-4.8); Lymphocytes % 23.4 %; Mean Corpuscular HGB Conc 34.5 g/dL (30.0-36.0); Mean Corpuscular Hemoglobin 31.3 pg (28.0-34.0); Mean Corpuscular Volume 90.8 fl (80-94); Monocytes # 0.5 10^3/uL (0.2-0.9); Monocytes % 7.4 %; Neutrophils # 4.29 10^3/uL (1.8-7.7); Neutrophils % 58.9 %; Nucleated Red Blood Cells % 0 %; Platelet Count 225 10^3/cmm (130-400); Red Blood Count 4.12 10^6/uL (4.1-5.3); Red Cell Distribution Width 11.9 % (12.1-15.1); White Blood Count 7.3 10^3/uL (4.0-10.0)
--- NOTE | 2022-10-08 05:40 | PC.NURSE ---
Received report from Loree HARRINGTON. Patient resting quietly in bed but awakens easily. AOX4. Reports pain level of 1 for swollen right middle finger. He has been keeping his right arm elevated on a pillow. Dressing is dry and intact. He has had nothing by mouth since midnight.
[2022-10-08 05:49] LABS: Anion Gap 11.3 (5-19); Blood Urea Nitrogen 14 mg/dL (6-20); Calcium 8.6 mg/dL (8.5-10.5); Carbon Dioxide 25 mmol/L (22-29); Chloride 101 mmol/L (98-107); Glomerular Filtration Rate 71.4 mL/min (90-130); Glucose 101 mg/dL (65-115); Osmolality Calculated 279 mOsm/kg (285-295); Potassium 3.3 mmol/L (3.5-5.1); Sodium 134 mmol/L (136-145)
[2022-10-08] MEDS: piperacillin-tazobactam 3.375 GM in sodium chloride 0.9% (plus) 50 ML IV (05:57)
[2022-10-08 08:00] VITALS: BP 132/64; PULSE 73; RESP 16; TEMP 36.4; O2SAT 97
[2022-10-08] MEDS: heparin 5,000 unit/mL INJ 1 mL 5000 UNIT SUBCUT (08:51)
[2022-10-08] MEDS: sertraline 100 mg Tablet 150 MG PO (08:52)
--- NOTE | 2022-10-08 08:53 | PM.PN ---
Subjective Subjective: Patient seen and examined this morning doing extremely well has not required any pain medication. He is able to move his finger without pain or discomfort he still has some stiffness secondary to swelling and brief periods of immobilization. At this point time is been n.p.o. since midnight he may have a diet and may discharge home today from an orthopedic standpoint. No further intervention required at this time we will follow-up with us in office in 10 to 14 days for incision check and suture removal. Given appropriate discharge instructions postoperatively as well as antibiotics. Vitals/I&O/Wt Last Vital Signs Temp 97.6 F 10/08/22 08:00 Pulse 73 10/08/22 08:00 Resp 16 10/08/22 08:00 BP 132/64 10/08/22 08:00 Pulse Ox 97 10/08/22 08:00 O2 Del Method 10/08/22 08:00 O2 Flow Rate 6 10/06/22 13:56 10/07/22 10/08/22 10/08/22 22:59 06:59 14:59 Intake Total 2310 / 2840 350 / 3190 Balance 2310 / 2840 350 / 3190 Physical Exam Narrative: Dressing takedown incision inspected to the right middle finger incision clean dry and intact sutures in place. Patient is able to move his finger without any pain or discomfort no pain with passive range of motion only slight tenderness to palpation at the A1 mandie normal postoperative tenderness. Sensations intact light touch distally. Fingertips warm well perfused. Significant decrease in swelling from preop. Data : 10/08/22 05:01 10/08/22 05:01 Micro: Microbiology 10/06/22 12:36 Gram Stain - Final Finger - #2 Anaerobic Culture - Preliminary Abscess Culture - Preliminary 10/06/22 12:36 Gram Stain - Final Finger - #1 Abscess Culture - Preliminary 10/06/22 12:36 Anaerobic Culture - Preliminary Finger - #2 A&P Assessment and plan (1) Flexor tenosynovitis of finger: (2) Cellulitis of finger: Qualifiers: Laterality: right Qualified Code(s): L03.011 - Cellulitis of right finger Plan Patient is recovering well dressing changed today. He may be weightbearing as tolerated to the right hand given appropriate discharge instructions pertaining to his incision he may clean this with warm soapy water once or twice daily recommend keeping this covered overnight and while working throughout the day encouraged not to work in any gloves that could create a moist and bacteria environment. Will be given discharge antibiotics. This point time he is significantly clinically improved his exam is much improved his finger looks improved clinically he is okay to discharge from orthopedic standpoint no further orthopedic surgical intervention required at this time. He will follow-up with the orthopedic office in 10 to 14 days for incision check and suture removal. Patient understands and agrees with current plan. All questions answered. Understand they have any questions in contact the office. Attestations Medical Necessity Statement*: Patient right middle finger flexor tenosynovitis with abscess requiring IV antibiotics and surgical intervention. 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
[2022-10-08 09:38] LABS: C Reactive Protein 14.2 mg/L (0.0-4.9)
--- NOTE | 2022-10-08 10:20 | P.DS_ITS ---
Discharge Providers Date of Admission: 10/05/22 05:41 Date of Discharge: October 08, 2022 Attending Provider at Admission: Akash Sánchez Attending Provider at Discharge: Edwin Burdick MD Diagnoses at Discharge Discharge Diagnosis (1) Flexor tenosynovitis of finger: Status: Acute (2) Cellulitis of finger: Status: Acute Qualifiers: Laterality: right Qualified Code(s): L03.011 - Cellulitis of right finger Reason for Visit Reason for Visit: Finger injury on Right hand Hospital Course Hospital Course HPI:Dr. Akash Sánchez MD Pleasant 47-year-old gentleman presented to ER due to swelling, warmth, erythema, severe tenderness of right middle finger after an injury about a week ago with a piece of metal.? He has been seen by his primary provider has been taking Keflex, in the last 3 days also has been receiving Rocephin injections.? Initially swelling had gone down, however, in the last day or so it has worsened again.? He states he has been having fever spikes at home, he was having night sweats last night.? He has been having some nausea.? He also feels that perhaps antibiotics had made him constipated. He is able to move the finger, although it is quite swollen, and very tender to touch. Hospital Course : He was admitted for the management of cellulitis of finger as well as Flexor tenosynovitis of finger , he was kept on broad spectrum abxs as well as underwent Right middle finger irrigation and debridement, flexor tendon synovectomy and tenolysis, irrigation debridement PIP joint orthopedic was primary and was on board, patient responded well and was discharged on oral bactrim, cultures were negative.Patient will follow ortho as outpatient. Physical Exam Resp: COMMON NORMALS: clear to auscultation bilaterally EFFORT & INSPECTION: Yes symmetric chest movement AUSCULTATION: clear to auscultation bilaterally Cardio: COMMON NORMALS: regular rate, regular rhythm, S1 normal heart sound pr esent, S2 normal heart sound present, No gallops present (Cardio), No murmurs present (Cardio), No rub (Cardio) and Peripheral pulses 2+ throughout RATE: regular rate RHYTHM: regular rhythm HEART SOUNDS: S1 normal heart sound present and S2 normal heart sound present PERIPHERAL PULSES: Peripheral pulses 2+ throughout GI: COMMON NORMALS: Normal to inspection, nondistended, normoactive bowel sounds present, Soft to palpation, non-tender, No hepatosplenomegaly present and no masses AUSCULTATION: Yes normoactive bowel sounds PALPATION: Yes Soft to palpation and Yes No hepatosplenomegaly present RECTAL EXAM: Yes deferred Extremity: COMMON NORMALS: no clubbing, cyanosis or edema and no pedal edema NARRATIVE EXTREMITY EXAM: Right third digit with erythema swelling, horizontal cut present Discharge Data Studies Completed and Pending Completed Studies During Hospitalization Category Date Time Status XR hand RT min 3V* [id number] Routine Exams 10/05/22 12:17 Completed Pending at discharge Category Date Time Status Abscess Culture and Gram Stain Routine Lab 10/06/22 12:36 Results Abscess Culture and Gram Stain Routine Lab 10/06/22 12:36 Results Anaerobic Culture Routine Lab 10/06/22 12:36 Results Anaerobic Culture Routine Lab 10/06/22 12:36 Results Radiology Impressions Hand X-Ray 10/05/22 12:17 Impression: Negative right hand. Laboratory Results WBC 7.3 10^3/uL (4.0-10.0) 10/08/22 05:01 RBC 4.12 10^6/uL (4.1-5.3) 10/08/22 05:01 Hgb 12.9 g/dL (11.7-16.6) 10/08/22 05:01 Hct 37.4 % (42.0-52.0) L 10/08/22 05:01 MCV 90.8 fl (80-94) 10/08/22 05:01 MCH 31.3 pg (28.0-34.0) 10/08/22 05:01 MCHC 34.5 g/dL (30.0-36.0) 10/08/22 05:01 RDW 11.9 % (12.1-15.1) L 10/08/22 05:01 Plt Count 225 10^3/cmm (130-400) 10/08/22 05:01 MPV 9.0 fL (7.4-10.4) 10/08/22 05:01 Neut % (Auto) 58.9 % 10/08/22 05:01 Lymph % (Auto) 23.4 % 10/08/22 05:01 [place] % (Auto) 7.4 % 10/08/22 05:01 Eos % (Auto) 7.7 % 10/08/22 05:01 Baso % (Auto) 1.1 % 10/08/22 05:01 Neut # (Auto) 4.29 10^3/uL (1.8-7.7) 10/08/22 05:01 Lymph # (Auto) 1.7 10^3/uL (0.8-4.8) 10/08/22 05:01 [place] # (Auto) 0.5 10^3/uL (0.2-0.9) 10/08/22 05:01 Eos # (Auto) 0.6 10^3/uL (0.0-0.8) 10/08/22 05:01 Baso # (Auto) 0.1 10^3/uL (0.0-0.1) 10/08/22 05:01 Nucleated RBC % (auto) 0 % 10/08/22 05:01 Nucleated RBCs # 0.0 /100WBC 10/08/22 05:01 ESR 39 mm/hr (0-10) H 10/05/22 05:25 Sodium 134 mmol/L (136-145) L 10/08/22 05:01 Potassium 3.3 mmol/L (3.5-5.1) L 10/08/22 05:01 Chloride 101 mmol/L (98-107) 10/08/22 05:01 Carbon Dioxide 25 mmol/L (22-29) 10/08/22 05:01 Anion Gap 11.3 (5-19) 10/08/22 05:01 BUN 14 mg/dL (6-20) 10/08/22 05:01 Creatinine 1.1 mg/dL (0.7-1.2) 10/08/22 05:01 GFR Calculation 71.4 mL/min (90-130) L 10/08/22 05:01 Glucose 101 mg/dL (65-115) 10/08/22 05:01 Calculated Osmolality 279 mOsm/kg (285-295) L 10/08/22 05:01 Calcium 8.6 mg/dL (8.5-10.5) 10/08/22 05:01 C-Reactive Protein 14.2 mg/L (0.0-4.9) H 10/08/22 05:01 Vancomycin Trough 15.2 ug/mL (10-15) H 10/07/22 03:31 Vitals Last Vital Signs Temp 97.6 F 10/08/22 08:00 Pulse 73 10/08/22 08:00 Resp 16 10/08/22 08:00 BP 132/64 10/08/22 08:00 Pulse Ox 97 10/08/22 08:00 O2 Del Method 10/08/22 08:00 O2 Flow Rate 6 10/06/22 13:56 Discharge Plan Discharge Patient Disposition: Home Condition: Stable Prescriptions: New Bactrim DS 800-160 mg tablet 1 tab PO Q12H 14 Days Qty: 28 0RF Continued diphenhydramine-acetaminophen [Tylenol PM Extra Strength] 25-500 mg tablet 1 tab PO BEDTIME PRN (Reason: Pain) meloxicam 15 mg tablet 15 mg PO DAILY 90 Days Qty: 90 1RF sertraline 100 mg tablet 150 mg PO DAILY Discontinued cephalexin 500 mg capsule 500 mg PO TID Qty: 30 0RF Discharge Orders: Discharge Order (Routine); Ordered 10/08/22 Ordered By: Edwin Burdick Referrals: Marisel Dutton FNP [Nurse Practitioner] - 1 week (Please call Marisel Dutton's office Sunday morning to schedule a hospital follow up appointment within 1 week. ) Kael Botello DO [Physician] - 2 weeks (Please call Sunday to schedule appointment.) Discharge Diet: Advance as tolerated Discharge Activity: Increase activity as tolerated Patient Instructions: Sulfamethoxazole/Trimethoprim (By mouth), Cellulitis (GEN), Opioid Safety Activity Restrictions/Additional Instructions: Orthopedic discharge instructions: Patient may utilize hand and encourage range of motion as tolerated Keep incision clean dry and intact once or twice daily dressing changes, may clean incision with warm soapy water pat dry and redress with a dry dressing. May let air out in the evening and work on range of motion Take antibiotics as prescribed May continue Mobic for pain, contact the office if he any narcotic pain medication is needed a new prescription can be sent Encourage ice and elevation Follow-up with Dr. Botello in 10 to 14 days for incision check and suture removal Contact the office for any questions or concerns. Discharge Attestations Time Spent in Discharge Care*: less than 30 min Quality Metrics Clinical Quality Measures [ No reported AMI, CVA or VTE this stay] Coding Level of Care Code Acute Chg FW DC note Diagnoses Flexor tenosynovitis of finger M65.9 Cellulitis of finger L03.011 Laterality: right
--- NOTE | 2022-10-08 10:47 | PC.NURSE ---
DISCHARGE PRESCRIPTION CALLED INTO [facility], [place], [facility].
--- NOTE | 2022-10-08 11:39 | PC.NURSE ---
Discussed discharge paperwork, new medications, discontinued medications and follow up appointments with patient and spouse. Verbalized understanding.
[2022-10-08 11:40] VITALS: BP 132/64; PULSE 73; RESP 16; TEMP 36.4; O2SAT 97
== END 2022-10-08 11:00 | disposition home or self-care (01) | DRG 514 ==
LOC: ER 05:41 → ER IP 05:46 → MEDSURG 08:23
PROVIDERS: Student in an Organized Health Care Education/Training Program; Admitting Provider Internal Medicine; Emergency Provider Emergency Medicine; Visit Provider Internal Medicine
PROC: 0LB70ZZ Excision of Right Hand Tendon, Open Approach (ICD-10-PCS; principal; 2022-10-06 12:00)
DX: M65.9 Synovitis and tenosynovitis, unspecified (principal); L03.011 Cellulitis of right finger; K59.00 Constipation, unspecified
CPT/HCPCS: 36415; 73130; 80048; 80202; 85025; 85651; 86140; 87070; 87075; 87205; 96365; 96367; 96372; 99285; J0131; J0690; J1100; J1170; J1644; J1885; J2250; J2405; J2543; J2704; J3010; J3370; J3490; J7030; J7050

== ENCOUNTER → 2023-02-23 13:23 | Outpatient (BNVA) | payer OTHER, SELFPAY | PROVIDERS: Visit Provider Student in an Organized Health Care Education/Training Program | DX: M65.321 Trigger finger, right index finger (principal); M65.341 Trigger finger, right ring finger; G56.03 Carpal tunnel syndrome, bilateral upper limbs | CPT/HCPCS: 73130 ==

== ENCOUNTER → 2024-02-01 10:37 | Outpatient (BNVA) | payer OTHER, SELFPAY | PROVIDERS: Visit Provider Nurse Practitioner Family | DX: M25.50 Pain in unspecified joint (principal); M79.10 Myalgia, unspecified site; E78.2 Mixed hyperlipidemia; F41.9 Anxiety disorder, unspecified; R53.83 Other fatigue | CPT/HCPCS: 80053; 80061; 84402; 84403; 84443; 85025; 85651; 86140; 86160; 86162; 86200; 86235; 86255; 86376; 86431 ==

== ENCOUNTER 2024-03-19 06:23 | Day surgery (SDC) | payer OTHER, SELFPAY ==
[2024-03-19 06:41] VITALS: BP 126/79; PULSE 78; RESP 18; TEMP 36.2; O2SAT 97; BMI 29.1
[2024-03-19] MEDS: sodium chloride 0.9% 1,000 ML 30 ML IV (06:48)
--- NOTE | 2024-03-19 07:31 | P.ANESASSM_ITS ---
Pre-Anesthetic Assessment Height/Weight: Height 1.83 m Weight 97.522 kg Temp Pulse Resp BP Pulse Ox O2 Del Method 97.2 F L 78 18 126/79 97 Room Air 03/19/24 06:41 03/19/24 06:41 03/19/24 06:41 03/19/24 06:41 03/19/24 06:41 03/19/24 06:41 Operation Date: 03/19/24 07:45 Proposed Procedures p Colonoscopy(Not Applicable) - Hansel Arciniega DO Familial anesthetic complications: None Was Beta Cindy taken within 24 hours: N/A Was Clonidine taken within 24 hours: N/A Last intake: Intake Last Liquid Date 03/18/24 Last Liquid Time 22:30 Last Solid Date 03/17/24 Last Solid Time 18:00 Social No alcohol and No tobacco Exam alert, oriented x 3, clear to auscultation bilaterally and regular rate & rhythm Airway Submandibular: within normal limits Cervical ROM: within normal limits Mallampati: Class II Comments: Comments: Several missing teeth History/ROS No significant history except as noted and No significant complaints Pulmonary None reported CV/HEM None reported Chronic Renal Insufficiency Hepatic None reported GI Gastroesophageal Reflux Disease (very rarely have complications. None this morning) Metabolic Hyperlipidemia [facility] [place] Osteoarthritis/DJD Neuropsych Anxiety and Neuropathy Anesthetic Plan ASA status: 2 Anesthesia: Anesthesia Evaluation, General and MAC Medications/Allergies Home Medications Medication Instructions Recorded Confirmed Last Taken Type diphenhydramine 25 1 tab PO BEDTIME PRN Pain 04/07/21 03/18/24 03/16/24 History mg-acetaminophen 500 mg tablet (Tylenol PM Extra Strength) dapagliflozin propanediol 10 mg 10 mg PO QAM 30 days #30 tabs 02/01/24 03/18/24 Unknown Rx tablet (Farxiga) sertraline 100 mg tablet 150 mg (1.5 x 100 mg) PO DAILY 02/01/24 03/18/24 03/16/24 Rx #135 tabs Allergies Allergy/AdvReac Type Severity Reaction Status Date / Time No Known Allergies Allergy Verified 03/18/24 08:43 Current Medications Generic Name Dose Route Start Last Admin Trade Name Freq PRN Reason Stop Dose Admin Sodium Chloride 1,000 mls @ 30 mls/hr 03/19/24 06:45 03/19/24 06:48 Sodium Chloride 0.9% IV 03/20/24 06:44 30 mls/hr .Q24H TENZIN Administration PFSH Anesthesia Medical History Flexor tenosynovitis of finger Polycythemia Polyarthralgia History of kidney stones Surgical History History of ureter stent Hx of facial fracture repair History of nasal surgery Family History Father Diabetes Hypertension Grandfather Diabetes Hypertension Cancer prostate Grandmother Cancer Hypertension Mother Hypertension Denies family history of Clotting disorder Bleeding disorder Social History Smoking and tobacco/nicotine status: never used tobacco/nicotine Second hand smoke exposure: No Alcohol intake: never Substance/Drug Use: never Caregiver/support person: Yes Lives independently: Yes Household members: spouse Marital status: service: No Current occupational status: employed Pets and animals: Yes Current gender identity: Male Special ely needs: No Agree to transfusion: Yes Data Anesthesia Cardiac Studies: No Data to Display
--- NOTE | 2024-03-19 07:56 | PM.HP ---
Providers/Chief Complaint Primary Care Provider: Caity Mares NP Chief Complaint: Z12.11 History of Present Illness Sam Ulloa is a 49 year old male Review of Systems General: Reports: 10 or more systems reviewed and unremarkable except in HPI and below Medications/Allergies Home Medications Medication Instructions Recorded Confirmed Last Taken Type diphenhydramine 25 1 tab PO BEDTIME PRN Pain 04/07/21 03/18/24 03/16/24 History mg-acetaminophen 500 mg tablet (Tylenol PM Extra Strength) dapagliflozin propanediol 10 mg 10 mg PO QAM 30 days #30 tabs 02/01/24 03/18/24 Unknown Rx tablet (Farxiga) sertraline 100 mg tablet 150 mg (1.5 x 100 mg) PO DAILY 02/01/24 03/18/24 03/16/24 Rx #135 tabs Allergies Allergy/AdvReac Type Severity Reaction Status Date / Time No Known Allergies Allergy Verified 03/18/24 08:43 PFSH Acute PFSH: Medical History Flexor tenosynovitis of finger Polycythemia Polyarthralgia History of kidney stones Surgical History History of ureter stent Hx of facial fracture repair History of nasal surgery Family History Father Diabetes Hypertension Grandfather Diabetes Hypertension Cancer prostate Grandmother Cancer Hypertension Mother Hypertension Denies family history of Clotting disorder Bleeding disorder Social History Smoking and tobacco/nicotine status: never used tobacco/nicotine Second hand smoke exposure: No Alcohol intake: never Substance/Drug Use: never Caregiver/support person: Yes Lives independently: Yes Household members: spouse Marital status: service: No Current occupational status: employed Pets and animals: Yes Current gender identity: Male Special ely needs: No Agree to transfusion: Yes Vitals/I&O/Wt Last Vital Signs Temp 97.2 F L 03/19/24 06:41 Pulse 78 03/19/24 06:41 Resp 18 03/19/24 06:41 BP 126/79 03/19/24 06:41 Pulse Ox 97 03/19/24 06:41 O2 Del Method Room Air 03/19/24 06:41 Weight last 48 hrs Weight 215 lb A&P Assessment and plan (1) Colon cancer screening: Plan Colonoscopy Attestations Medical Necessity Statement*: Home Coding Level of Care Code Acute Code for Chg Fwd Diagnoses Colon cancer screening Z12.11
[2024-03-19 08:11] VITALS: BP 109/68; PULSE 72; RESP 14; TEMP 36.4; O2SAT 96
[2024-03-19 08:27] VITALS: BP 111/82; PULSE 76; RESP 16; O2SAT 96
--- NOTE | 2024-03-19 09:05 | ANE.PACU2 ---
Inpatient post-anesthesia follow up: Airway intact: Yes Vital signs: Temperature 97.6 F Pulse Rate 76 Respiratory Rate 16 Blood Pressure 111/82 Pulse Oximetry 96 Oxygen Delivery Me thod Room Air Oxygen Flow Rate Fraction of Inspir ed Oxygen Hydration adequate: Yes Nausea and vomiting: No Pain level: 1 Mental status: Baseline
== END 2024-03-19 09:04 | disposition home or self-care (01) ==
PROVIDERS: PCP Nurse Practitioner Family; Visit Provider Surgery
PROC: 0DJD8ZZ Inspection of Lower Intestinal Tract, Via Natural or Artificial Opening Endoscopic (ICD-10-PCS; CPT 45378; principal; 2024-03-19 07:45)
DX: Z12.11 Encounter for screening for malignant neoplasm of colon (principal); K64.8 Other hemorrhoids; E78.5 Hyperlipidemia, unspecified
CPT/HCPCS: 45378; J2704; J7030

== ENCOUNTER 2024-04-23 07:46 | Day surgery (SDC) | payer OTHER, SELFPAY ==
[2024-04-23] VITALS (8 sets, daily range): BP systolic 125–163; BP diastolic 73–88; PULSE 61–82; RESP 14–18; TEMP 36.1; O2SAT 97–100; BMI 27.8
[2024-04-23] MEDS: sodium chloride 0.9% 1,000 ML 30 ML IV (08:12)
[2024-04-23] MEDS: ketorolac 30 mg/mL INJ IVP (08:13)
[2024-04-23] MEDS: acetaminophen 1,000 MG/100 ML PIGGYBACK 400 MG IV (08:14)
--- NOTE | 2024-04-23 09:06 | P.ANESASSM_ITS ---
Pre-Anesthetic Assessment Height/Weight: Height 1.83 m Weight 92.986 kg Temp Pulse Resp BP Pulse Ox O2 Del Method 97.0 F L 82 17 140/85 97 Room Air 04/23/24 08:00 04/23/24 08:00 04/23/24 08:00 04/23/24 08:00 04/23/24 08:00 04/23/24 08:02 Operation Date: 04/23/24 09:35 Proposed Procedures p Trigger Finger Release/right index finger trigger release/right ring finger trigger release(Right) - Kael [place], DO Familial anesthetic complications: None Was Beta Cindy taken within 24 hours: N/A Was Clonidine taken within 24 hours: N/A Last intake: Intake Last Liquid Date 04/22/24 Last Liquid Time 23:59 Last Solid Date 04/22/24 Last Solid Time 19:30 Social No alcohol and No tobacco Exam alert, oriented x 3, clear to auscultation bilaterally and regular rate & rhythm Airway Mallampati: Class I Dentition: full Chronic Renal Insufficiency Anesthetic Plan ASA status: 2 Anesthesia: MAC Risk of > 500 ml blood loss (7ml/kg in children): No Medications/Allergies Home Medications Medication Instructions Recorded Confirmed Last Taken Type diphenhydramine 25 1 tab PO BEDTIME PRN Pain 04/07/21 04/22/24 04/19/24 History mg-acetaminophen 500 mg tablet (Tylenol PM Extra Strength) dapagliflozin propanediol 10 mg 10 mg PO QAM 30 days #30 tabs 02/01/24 04/22/24 Unknown Rx tablet (Farxiga) sertraline 100 mg tablet 150 mg (1.5 x 100 mg) PO DAILY 02/01/24 04/22/24 04/22/24 Rx #135 tabs Allergies Allergy/AdvReac Type Severity Reaction Status Date / Time No Known Allergies Allergy Verified 04/23/24 07:57 Current Medications Generic Name Dose Route Start Last Admin Trade Name Freq PRN Reason Stop Dose Admin Sodium Chloride 1,000 mls @ 30 mls/hr 04/23/24 08:00 04/23/24 08:12 Sodium Chloride 0.9% IV 04/24/24 07:59 30 mls/hr .Q24H TENZIN Administration PFSH Anesthesia Medical History Flexor tenosynovitis of finger Polycythemia Polyarthralgia History of kidney stones Surgical History History of ureter stent Hx of facial fracture repair History of nasal surgery Family History Father Diabetes Hypertension Grandfather Diabetes Hypertension Cancer prostate Grandmother Cancer Hypertension Mother Hypertension Denies family history of Clotting disorder Bleeding disorder Social History Smoking and tobacco/nicotine status: never used tobacco/nicotine Second hand smoke exposure: No Alcohol intake: never Substance/Drug Use: never Caregiver/support person: Yes Lives independently: Yes Household members: spouse Marital status: service: No Current occupational status: employed Pets and animals: Yes Current gender identity: Male Special ely needs: No Agree to transfusion: Yes Data Anesthesia Cardiac Studies: No Data to Display
--- NOTE | 2024-04-23 09:14 | W.PM.OPSFHP ---
Same Day Surgery H&P Indication for Procedure/HPI DATE OF PROCEDURE: April 23, 2024 CHIEF COMPLAINT/INDICATIONFOR SURGICAL PROCEDURE: Right index finger trigger, right ring finger trigger PREOP DIAGNOSIS: Right index finger trigger, right ring finger trigger PLANNED PROCEDURE: Operation Date: 04/23/24 09:35 Proposed Procedures p Trigger Finger Release/right index finger trigger release/right ring finger trigger release(Right) - Kael Ayan, DO Medications/Allergies* Home Medications Medication Instructions Recorded Confirmed Type diphenhydramine 25 1 tab PO BEDTIME PRN Pain 04/07/21 04/22/24 History mg-acetaminophen 500 mg tablet (Tylenol PM Extra Strength) Allergies/Adverse Reactions Allergy/AdvReac Type Severity Reaction Status Date / Time No Known Allergies Allergy Verified 04/23/24 07:57 Current Medications: Generic Name Dose Route Start Last Admin Trade Name Freq PRN Reason Stop Dose Admin Sodium Chloride 1,000 mls @ 30 mls/hr 04/23/24 08:00 04/23/24 08:12 Sodium Chloride 0.9% IV 04/24/24 07:59 30 mls/hr .Q24H TENZIN Administration Pertinent History/Comorbid Conditions* Medical History (Updated 03/20/24 @ 00:01 by URBAN Larios) Flexor tenosynovitis of finger Polycythemia Polyarthralgia History of kidney stones Surgical History (Updated 04/08/21 @ 07:37 by NAT Pollard) History of ureter stent Hx of facial fracture repair History of nasal surgery Family History (Updated 04/07/21 @ 16:33 by Marisel Valentino LPN, RT) Diabetes Father Grandfather Cancer Grandfather prostate Grandmother Hypertension Father Grandfather Grandmother Mother Denies family history of Clotting disorder Bleeding disorder Social History Smoking and tobacco/nicotine status: never used tobacco/nicotine Second hand smoke exposure: No Alcohol intake: never Substance/Drug Use: never Caregiver/support person: Yes Lives independently: Yes Household members: spouse Marital status: service: No Current occupational status: employed Pets and animals: Yes Current gender identity: Male Special ely needs: No Agree to transfusion: Yes Pertinent Exam Findings alert, oriented x 3, operative site marked and procedure specific exam findings Please refer to detailed orthopedic examination on 03/18/2024 see below: Examination of the right hand No pain with palpation to c spine or elbow Negative medial nerve compression test Mild positive tinels at the wrist Negative Phalens Tender to palpation to A1 mandie of index and ring finger with mechanical triggering noted Unable to make a full fist secondary to pain and swelling of the index & ring finger, previous I&D incision of the right middle finger is well-healed no signs of infection. Recommendations Surgery/Procedure today Other Plans: Plan to proceed to the OR today for right index finger trigger release and right ring finger trigger release. Patient understands and agrees with current plan. All questions answered. Coding Level of Care Code Acute Code for Chg Magnus
[2024-04-23] MEDS: ceFAZolin 2,000 MG in sodium chloride 0.9% (plus) 50 ML 100 MG IV (09:27)
[2024-04-23] MEDS: ROPivacaine 0.5% SDV 30 mL 25 MG INJECTION (09:53)
[2024-04-23] MEDS: BUPivacaine 0.5% INJ 10 mL 5 ML INJECTION (09:53)
--- NOTE | 2024-04-23 10:21 | P.BOP_ITS ---
Date of Procedure: [April 23, 2024] Surgeon: [Dr. Botello DO] [employer] Wafers(s): [Joss Botello PA-C] Procedure(s) performed: [Right middle finger trigger release right ring finger trigger release] Findings of the procedure(s): [Right middle trigger finger right ring trigger finger] Estimated blood loss: [5 ml] Specimen(s) removed: [n/a] Post-operative diagnosis: [Right middle finger trigger release, right ring finger trigger release]
--- NOTE | 2024-04-23 10:26 | PM.PACU ---
PACU note Narrative: Patient is a 49-year-old male that just underwent a right ring finger and middle finger trigger release patient transferred to PACU in stable condition. Pain is well controlled. Dressing on hand is dry and in place. Patient's fingers are warm and well-perfused. Patient can wiggle fingers. normal cap refill under 2 seconds. Patient has normal elbow range of motion. sensation to hand intact. Exam: awake Disposition: discharged
--- NOTE | 2024-04-23 10:30 | P.OP_ITS ---
Operative Report Date of procedure: April 23, 2024 Surgeon: Kael Botello DO Catalyst Recovery Operator: Joss Botello PA-C: PA was necessary for assistance in this case with hand positioning to execute the procedure, retraction and protection of neurovascular structures as well as to assist with wound closure and dressing application. Procedure: Preoperative diagnosis: Right index finger trigger, right ring finger trigger Post-op?diagnosis: Same Procedure done: Right index finger?trigger?release Right ring finger trigger release Surgeon: Kael Botello DO Estimated blood loss: 5cc Tourniquet time 16mins Complications: None Condition: stable Disposition: same day Brief History: Patient's been seen and worked up in the outpatient setting and findings consistent with preoperative diagnosis of right index and ring finger?trigger.? He is failed conservative treatment.? Continues to have mechanical locking and catching.? Severe pain as well.? We talked about treatment?options nonoperative versus?operative intervention.? ?Patient understands the risk benefits complication alternatives of surgical nonsurgical treatment?options.? Understanding his risks with surgery he elects proceed with surgical intervention.? Consent obtained in the office.? Here today to proceed with surgical intervention.? All questions answered. Procedure: Patient was seen and evaluated in the preoperative holding area.? Consent was reviewed and signed with patient.? Seen evaluated by Anesthesia Department.? Once cleared for surgery was brought back to the?operative suite.? Placed in supine position on the OR table all bony prominences well-padded patient properly secured to the bed.? Patient's right arm was then placed to the armboard.? A nonsterile tourniquet applied to the right upper arm.? Patient's right upper extremity was then prepped and draped in standard orthopedic fashion.? Final timeout performed.? Patient received appropriate preoperative antibiotics. Esmarch tourniquet was used exsanguinate the right upper extremity tourniquet insufflated to 250 mmHg. Under sterile aseptic technique local digital block was performed to the right ring finger.? Once appropriately anesthetized a standard horizontal incision was made centering over the A1 mandie following patient's flexor crease.? Sharp scalpel incision was made only through skin and then switched to Littler dissection scissors and spread longitudinally directly over the flexor tendon sheath.? I then mobilized both radially and ulnarly and Kasdan retractors were used and placed by my high school assistant football coach to protect neurovascular bundle.? Next I visualized the A1 mandie and this was incised with a scalpel.? I then switched to dissection scissors and released the A1 mandie both proximally as well as distally to its entirety.? Significant tendon sheath fluid was noted consistent with inflammation.? No tear was noted of the flexor tendons.? At this point I utilized a rag nail and pulled the tendons FDS and FDP out of the incision and no?triggering was noted.? This point thorough irrigation was performed. Next proceeded with right index finger, under sterile aseptic technique local digital block was performed to the right index finger.? Once appropriately anesthetized a standard oblique incision was made centering over the A1 mandie following patient's flexor crease.? Sharp scalpel incision was made only through skin and then switched to Littler dissection scissors and spread longitudinally directly over the flexor tendon sheath.? I then mobilized both radially and ulnarly and Kasdan retractors were used and placed by my high school assistant football coach to protect neurovascular bundle.? Next I visualized the A1 mandie and this was incised with a scalpel.? I then switched to dissection scissors and released the A1 mandie both proximally as well as distally to its entirety.? Significant tendon sheath fluid was noted consistent with inflammation.? No tears were noted of the flexor tendons.? At this point I utilized a rag nail and pulled the tendons FDS and FDP out of the incision and no?triggering was noted.? I then had anesthesia wake up the patient and patient was able to actively flex and extend with no?triggering of both digits.? This point thorough irrigation was performed.? Tourniquet deflated hemostasis satisfactory with bipolar.? I then subsequently closed the incision with interrupted nylon suture.? Xeroform 4 x 4's, Kerlix and an Claus wrap was applied for a bulky soft dressing.? Patient was then subsequently awakened from anesthesia and taken to PACU in stable condition tolerated procedure without issues. Disposition: Patient taken back in stable condition recovering well.? Patient will receive appropriate discharge instruction as well as pain medication postoperatively.? Patient to follow-up with me in the office in 2 weeks for repeat evaluation and incision check.? Patient understands that any questions or concerns and contact the office.? All questions answered.
--- NOTE | 2024-04-23 11:20 | ANE.PACU2 ---
Inpatient post-anesthesia follow up: Airway intact: Yes Vital signs: Temperature 97.0 F Pulse Rate 61 Respiratory Rate 17 Blood Pressure 163/88 Pulse Oximetry 100 Oxygen Delivery Me thod Room Air Oxygen Flow Rate Fraction of Inspir ed Oxygen Hydration adequate: Yes Nausea and vomiting: No Pain level: 1 Mental status: Baseline
== END 2024-04-23 11:19 | disposition home or self-care (01) ==
PROVIDERS: PCP Nurse Practitioner Family; Visit Provider Student in an Organized Health Care Education/Training Program
PROC: (CPT 26055; principal; 2024-04-23 09:25)
DX: M65.321 Trigger finger, right index finger (principal); M65.341 Trigger finger, right ring finger
CPT/HCPCS: 26055 ×2; J0131; J0690; J1885; J2250; J2704; J2795; J3010; J3490; J7030

== ENCOUNTER → 2024-07-17 11:53 | Outpatient (BNVA) | payer OTHER, SELFPAY | PROVIDERS: PCP Nurse Practitioner Family; Visit Provider Nurse Practitioner Family | DX: N18.30 Chronic kidney disease, stage 3 unspecified (principal); E78.2 Mixed hyperlipidemia; F41.9 Anxiety disorder, unspecified; R79.89 Other specified abnormal findings of blood chemistry; R53.83 Other fatigue | CPT/HCPCS: 80053; 80061; 82043; 82306; 84402; 84403; 84443; 85025 ==

== ENCOUNTER → 2024-10-09 12:40 | Outpatient (BNVA) | payer OTHER, SELFPAY | PROVIDERS: PCP Nurse Practitioner Family; Visit Provider Nurse Practitioner Family | DX: R10.9 Unspecified abdominal pain (principal) | CPT/HCPCS: 87338 ==

== ENCOUNTER 2024-10-14 09:55 | Outpatient (CLI) | payer OTHER, SELFPAY ==
--- NOTE | 2024-10-14 10:00 | US_ITS ---
WS: [id number] Complete ABDOMINAL ULTRASOUND HISTORY: R10.11 - Right upper quadrant pain COMPARISON: None available. Liver: 16.8 cm in length. Normal size liver and echogenicity. No bile duct dilatation or mass. Portal Vein: Normal hepatopetal flow with monophasic waveform. Gallbladder: Normally distended gallbladder with no stones or wall thickening. CBD: 0.2 cm Pancreas: Not visualized. Right kidney: 11.1 cm x 5.3 x 4.3 cm. Cortex:1.0 cm. Normal size and echogenicity. No hydronephrosis or mass. Left kidney: 10.7 cm x 4.9 cm x 4.9 cm. Cortex: 1.2 cm. Normal size and echogenicity. No hydronephrosis or mass. Spleen: 12.9 cm. Normal size and echogenicity. Scattered granulomatous. Aorta and IVC: Unremarkable abdominal aorta and IVC. US/US abdomen complete* [id number] Impression: 1. Normal gallbladder. 2. Normal liver and spleen. 3. No hydronephrosis. 4. Nonvisualized pancreas.
== END 2024-10-14 09:56 | disposition home or self-care (01) ==
LOC: RAD 09:57
PROVIDERS: PCP Nurse Practitioner Family; Visit Provider Nurse Practitioner Family
DX: R10.11 Right upper quadrant pain (principal)
CPT/HCPCS: 76700

== ENCOUNTER 2025-01-31 18:58 | Emergency (ER) | payer OTHER, SELFPAY ==
[2025-01-31 18:59] VITALS: BP 124/65; PULSE 89; RESP 16; TEMP 36.7; O2SAT 97; BMI 29.5
--- NOTE | 2025-01-31 19:05 | ECG_ITS ---
[facility] Date: 2025-01[facility]31 Pat Name: Sam Ulloa Department: Room: Gender: Male Career Development Consultant: : 1975 Requested By: Marino Sinha Order Number: [id number] Rodgers MD: CARRINGTON NICHOLE Measurements Intervals [place] Rate: 76 P: 51 ND: 156 QRS: 9 QRSD: 98 T: 44 QT: 353 QTc: 397 Interpretive Statements SINUS RHYTHM No previous ECG available for comparison Electronically Signed On 02-02-2025 22:17:54 CDT by CARRINGTON NICHOLE [id number]
--- NOTE | 2025-01-31 19:08 | XRR_ITS ---
PROCEDURE INFORMATION: Exam: XR Chest Exam date and time: 01/31/2025 7:17 PM Age: 49 years old Clinical indication: Chest pressure; C/O chest pain TECHNIQUE: Imaging protocol: Radiologic exam of the chest. Views: 1 view. COMPARISON: CR XR KUB [id number] 11/21/2018 11:27 AM FINDINGS: Lungs: The chest is slightly rotated to the left accounting for asymmetry of the hilar structures. Monitoring leads overlie the chest. When taking into account the degree of penetration lungs appear to be relatively clear except for slight increased density in the left infrahilar region suggestive of some atelectasis/infiltrate. No consolidation. Pleural spaces: Costophrenic angles are well demarcated.. No pleural effusion. No pneumothorax. Heart/Mediastinum: Unremarkable. No cardiomegaly. Bones/joints: Unremarkable. XR/XR chest 1V portable [id number] IMPRESSION: Subtle left infrahilar atelectasis/infiltrate.
--- NOTE | 2025-01-31 19:14 | ECG_ITS ---
[facility] Test Date: 2025-01-31 Pat Name: Sam Ulloa Department: Room: Gender: Male Back Sewer: : 1975 Requested By: Marino Sinha Order Number: [id number] Vishal MD: CARRINGTON NICHOLE Measurements Intervals [place] Rate: 63 P: 30 NM: 152 QRS: 15 QRSD: 97 T: 32 QT: 378 QTc: 388 Interpretive Statements SINUS RHYTHM Compared to ECG 01/31/2025 19:05:42 No significant changes Electronically Signed On 02-02-2025 22:17:29 CDT by CARRINGTON NICHOLE [email or web address] [id number]
[2025-01-31 19:24] LABS: Basophils # 0.1 10^3/uL (0.0-0.1); Basophils % 0.8 %; Eosinophils # 0.1 10^3/uL (0.0-0.8); Eosinophils % 1.3 %; Hematocrit 44.5 % (37-53); Lymphocytes # 2.8 10^3/uL (0.8-4.8); Lymphocytes % 30.8 %; Mean Corpuscular HGB Conc 35.3 g/dL (30-55); Mean Corpuscular Volume 87.8 fl (82-101); Mean Platelet Volume 8.5 fL (7.4-10.4); Monocytes # 0.6 10^3/uL (0.2-0.9); Monocytes % 6.5 %; Neutrophils # 5.55 10^3/uL (1.8-7.7); Neutrophils % 60.3 %; Nucleated Red Blood Cells % 0 %; Platelet Count 184 10^3/cmm (157-399); Red Blood Count 5.07 10^6/uL (3.85-5.65); Red Cell Distribution Width 12.4 % (12.1-15.1); White Blood Count 9.21 10^3/uL (3.29-11.43)
[2025-01-31 19:33] LABS: INR 0.89 (0.8-1.2)
[2025-01-31 19:34] LABS: Partial Thromboplastin Time 29.6 SECONDS (23.9-36.7)
[2025-01-31 19:39] LABS: Troponin(5th) Baseline 7 ng/L (0-15)
[2025-01-31 19:49] VITALS: BP 113/66; PULSE 96; RESP 17; O2SAT 96
[2025-01-31 19:49] LABS: Alanine Aminotransferase 21 U/L (0-41); Albumin Level 4.6 g/dL (3.5-5.2); Alkaline Phosphatase 70 U/L (40-130); Anion Gap 17.7 (5-19); Aspartate Amino Transferase 22 U/L (0-40); Blood Urea Nitrogen 13 mg/dL (6-20); Calcium 9.6 mg/dL (8.5-10.5); Carbon Dioxide 20 mmol/L (22-29); Chloride 105 mmol/L (98-107); Globulin 2.2 g/dL (1.3-4.6); Glomerular Filtration Rate 49.5 mL/min (90-130); Glucose 95 mg/dL (65-115); Lipase 39 U/L (13-60); NT Pro B Type Natriuretic Pept < 36 pg/mL (0-125); Osmolality Calculated 288 mOsm/kg (285-295); Potassium 3.7 mmol/L (3.5-5.1); Sodium 139 mmol/L (136-145); Total Bilirubin 0.6 mg/dL (0.15-1.2); Total Protein 6.8 g/dL (6.6-8.7)
--- NOTE | 2025-01-31 19:53 | PC.NURSE ---
nitro paste removed.
[2025-01-31 20:47] VITALS: BP 110/56; PULSE 75; RESP 18; O2SAT 95
[2025-01-31 21:14] VITALS: BP 115/78; PULSE 84; RESP 16; O2SAT 98
--- NOTE | 2025-01-31 21:54 | ED_ITS ---
Documented by User: Marino Sinha MD 02/01/25 09:58 HPI - Chest Pain 2 General: Chief Complaint: Chest Pain Stated Complaint: chest pain Time Seen by Provider: 01/31/25 19:00 History of Present Illness: This patient is a 49-year-old white male who presents to the emergency department for evaluation of chest pain. Patient states he became somewhat dizzy around 1:30 PM today. This evening he had an episode of chest pain across his upper chest and radiate through to the back. He had a syncopal episode at this time. His called EMS and had him brought in. Shoe Parts Molder gave him aspirin, sublingual nitro and put 1 inch of Nitropaste on him. Patient states he does not have a cardiac history. He does have a history of hypertension and takes lisinopril. Patient is asymptomatic at this time. Associated symptoms: Reports syncope Related Data Home Medications ?Medication ?Instructions ?Recorded ?Confirmed diphenhydramine 25 1 tab PO BEDTIME PRN Pain 01/12/25 mg-acetaminophen 500 mg tablet (Tylenol PM Extra Strength) Previous Rx's ?Medication ?Instructions ?Recorded sertraline 100 mg tablet 150 mg (1.5 x 100 mg) PO BLAISE LY 07/17/24 #135 tabs lisinopril 2.5 mg tablet 2.5 mg PO DAILY 90 days #90 tabs 08/13/24 testosterone cypionate 200 mg/mL 100 mg (0.5 mL) SUBCU T .Q 4 Weeks 08/13/24 intramuscular oil #3 mL pantoprazole 40 mg tablet,delayed 40 mg PO BID 6 weeks #84 tabs 01/12/25 release (Protonix) meloxicam 15 mg tablet 15 mg PO DAILY 90 days #90 t abs 01/22/25 Allergies Allergy/AdvReac Type Severity Reaction Status Date / Time No Known Allergies Allergy Verified 01/12/25 09:04 Review of Systems 2 General: Reports: 10 or more systems reviewed and unremarkable except in HPI and below Card: Reports: chest pain and syncope Musc: Reports: back pain PFSH ED 2 PFSH: Medical History Flexor tenosynovitis of finger Polycythemia Polyarthralgia History of kidney stones Surgical History History of ureter stent Hx of facial fracture repair History of nasal surgery Family History Father Diabetes Hypertension Grandfather Diabetes Hypertension Cancer prostate Grandmother Cancer Hypertension Mother Hypertension Denies family history of Clotting disorder Bleeding disorder Social History Smoking and tobacco/nicotine status: never used tobacco/nicotine Second hand smoke exposure: No Alcohol intake: never Substance/Drug Use: never Caregiver/support person: Yes Lives independently: Yes Household members: spouse Marital status: service: No Current occupational status: employed Pets and animals: Yes Current gender identity: Male Special ely needs: No Agree to transfusion: Yes Physical Exam 2 Const: COMMON NORMALS: no acute distress, patient oriented x3 and no limitations GENERAL APPEARANCE: cooperative and comfortable HENMT: COMMON NORMALS: normocephalic, atraumatic, Normal nasal mucous membranes and turbinates present, moist oral mucous membranes and oropharynx normal HEAD & SCALP: normal to inspection, normocephalic and atraumatic F ELIZABETH & SINUS: normal facial exam NOSE: Normal nasal mucous membranes and turbinates present Eye: COMMON NORMALS: Equal, round and reactive pupils present, EOMs intact bilaterally and conjunctivae normal GENERAL EYE: appearance normal, both eyes and all related structures CONJUNCTIVA: Yes conjunctivae normal PUPIL: Yes Equal, round and reactive pupils present Neck/C-Spine: COMMON NORMALS: supple and no JVD Chest: COMMONS NORMALS: normal inspection of the chest Resp: COMMON NORMALS: normal respiratory effort and clear to auscultation bilaterally AUSCULTATION: clear to auscultation bilaterally Cardio: COMMON NORMALS: no JVD, regular rate, regular rhythm, No gallops present (Cardio), No murmurs present (Cardio) and No rub (Cardio) RATE: r egular rate RHYTHM: regular rhythm GI: COMMON NORMALS: Normal to inspection, nondistended, normoactive bowel sounds present, Soft to palpation and non-tender AUSCULTATION: Yes normoactive bowel sounds PALPATION: Yes Soft to palpation : COMMON NORMALS: Yes no CVA tenderness BLADDER/KIDNEY EXAM: Yes no CVA tenderness Back/Pelvis: COMMON NORMALS: no CVA tenderness and thoracic and lumbar spine normal to inspection Extremity: COMMON NORMALS: normal to inspection Neuro: COMMON NORMALS: patient oriented x3 and CN's II-XII intact bilaterally Psych: COMMON NORMALS: mental status grossly normal, Normal thought process present and cooperative THOUGHT PROCESS: Normal thought process present Skin: COMMON NORMALS: no rashes or lesions noted, turgor normal and no jaundice GENERAL SKIN EXAM: no rashes or lesions noted and turgor normal Course 2 Vital Signs: Vital signs: Vital Signs Temperature 98.0 F 01/31/25 18:59 Pulse Rate 77 01/31/25 22:48 Respiratory Rate 16 01/31/25 22:48 Blood Pressure 122/87 01/31/25 22:48 Pulse Oximetry 97 01/31/25 22:48 Oxygen Delivery Me thod Room Air 01/31/25 21:14 MDM - Chest Pain Medical Decision Making I reviewed all of the EKGs which were obtained by the jacquard plate maker and route. One of the EKGs was obtained while the patient was having active chest pain. All of these EKGs were normal. EKG here in the emergency department is normal. Chest x-ray normal. CBC and CMP normal. BNP less than 36. Troponin 7. Lab Data 01/31/25 19:10 01/31/25 19:10 Radiology Impressions Chest X-Ray 01/31/25 19:08 IMPRESSION: Subtle left infrahilar atelectasis/infiltrate. Laboratory Results WBC 9.21 10^3/uL (3.29-11.43) 01/31/25 19:10 RBC 5.07 10^6/uL (3.85-5.65) 01/31/25 19:10 Hgb 15.70 g/dL (11.27-16.99) 01/31/25 19:10 Hct 44.5 % (37-53) 01/31/25 19:10 MCV 87.8 fl (82-101) 01/31/25 19:10 MCH 31.0 pg (27-33) 01/31/25 19:10 MCHC 35.3 g/dL (30-55) 01/31/25 19:10 RDW 12.4 % (12.1-15.1) 01/31/25 19:10 Plt Count 184 10^3/cmm (157-399) 01/31/25 19:10 MPV 8.5 fL (7.4-10.4) 01/31/25 19:10 Neut % (Auto) 60.3 % 01/31/25 19:10 Lymph % (Auto) 30.8 % 01/31/25 19:10 Gregory % (Auto) 6.5 % 01/31/25 19:10 Eos % (Auto) 1.3 % 01/31/25 19:10 Baso % (Auto) 0.8 % 01/31/25 19:10 Neut # (Auto) 5.55 10^3/uL (1.8-7.7) 01/31/25 19:10 Lymph # (Auto) 2.8 10^3/uL (0.8-4.8) 01/31/25 19:10 Gregory # (Auto) 0.6 10^3/uL (0.2-0.9) 01/31/25 19:10 Eos # (Auto) 0.1 10^3/uL (0.0-0.8) 01/31/25 19:10 Baso # (Auto) 0.1 10^3/uL (0.0-0.1) 01/31/25 19:10 Nucleated RBC % (auto) 0 % 01/31/25 19:10 Nucleated RBCs # 0.0 /100WBC 01/31/25 19:10 PT 12.60 SECONDS (12.1-14.9) 01/31/25 19:10 INR 0.89 (0.8-1.2) 01/31/25 19:10 APTT 29.6 SECONDS (23.9-36.7) 01/31/25 19:10 Sodium 139 mmol/L (136-145) 01/31/25 19:10 Potassium 3.7 mmol/L (3.5-5.1) 01/31/25 19:10 Chloride 105 mmol/L (98-107) 01/31/25 19:10 Carbon Dioxide 20 mmol/L (22-29) L 01/31/25 19:10 Anion Gap 17.7 (5-19) 01/31/25 19:10 BUN 13 mg/dL (6-20) 01/31/25 19:10 Creatinine 1.5 mg/dL (0.7-1.2) H 01/31/25 19:10 GFR Calculation 49.5 mL/min (90-130) L 01/31/25 19:10 Glucose 95 mg/dL (65-115) 01/31/25 19:10 Calculated Osmolality 288 mOsm/kg (285-295) 01/31/25 19:10 Calcium 9.6 mg/dL (8.5-10.5) 01/31/25 19:10 Total Bilirubin 0.6 mg/dL (0.15-1.2) 01/31/25 19:10 AST 22 U/L (0-40) 01/31/25 19:10 ALT 21 U/L (0-41) 01/31/25 19:10 Alkaline Phosphatase 70 U/L (40-130) 01/31/25 19:10 Troponin T Baseline 7 ng/L (0-15) 01/31/25 19:10 Troponin T 120 Minute 7.65 ng/L (0-15) 01/31/25 21:33 Delta Troponin T 0.65 ABS# (0-10) 01/31/25 21:33 NT-Pro-B Natriuret Pep < 36 pg/mL (0-125) 01/31/25 19:10 Total Protein 6.8 g/dL (6.6-8.7) 01/31/25 19:10 Albumin 4.6 g/dL (3.5-5.2) 01/31/25 19:10 Globulin 2.2 g/dL (1.3-4.6) 01/31/25 19:10 Lipase 39 U/L (13-60) 01/31/25 19:10 Discharge Plan Discharge Patient Disposition: Home Clinical Impression: Chest pain Qualifiers: Chest pain type: unspecified Qualified Code(s): R07.9 - Chest pain, unspecified Condition: Stable Prescriptions: No Action diphenhydramine-acetaminophen [Tylenol PM Extra Strength] 25-500 mg tablet 1 tab PO BEDTIME PRN (Reason: Pain) sertraline 100 mg tablet 150 mg PO DAILY Qty: 135 5RF pantoprazole [Protonix] 40 mg tablet,delayed release (DR/EC) 40 mg PO BID 42 Days Qty: 84 1RF lisinopril 2.5 mg tablet 2.5 mg PO DAILY 90 Days Qty: 90 1RF testosterone cypionate 200 mg/mL oil 100 mg SUBCUT .Q 4 Weeks Qty: 3 5RF meloxicam 15 mg tablet 15 mg PO DAILY 90 Days Qty: 90 0RF Discharge Orders: Discharge ED (Routine); Ordered 01/31/25 Ordered By: Marino Sinha Referrals: Marisel Dutton FNP [Primary Care Provider] - Patient Instructions: Chest Pain (ED) Activity Restrictions/Additional Instructions: Follow-up with your primary care provider as soon as possible for recheck and further evaluation. You will likely need a cardiac stress test ordered. Take 1 baby aspirin per day. Print Language: Burundian Coding Level of Care Code ED Variety Saw Operator for Chg Fwd Documented by User: Ahsan Flores DO 01/31/25 22:27 HPI - Chest Pain 2 General: Chief Complaint: Chest Pain Stated Complaint: chest pain Time Seen by Provider: 01/31/25 19:00 Related Data Home Medications ?Medication ?Instructions ?Recorded ?Confirmed diphenhydramine 25 1 tab PO BEDTIME PRN Pain 01/12/25 mg-acetaminophen 500 mg tablet (Tylenol PM Extra Strength) Previous Rx's ?Medication ?Instructions ?Recorded sertraline 100 mg tablet 150 mg (1.5 x 100 mg) PO BLAISE LY 07/17/24 #135 tabs lisinopril 2.5 mg tablet 2.5 mg PO DAILY 90 days #90 tabs 08/13/24 testosterone cypionate 200 mg/mL 100 mg (0.5 mL) SUBCU T .Q 4 Weeks 08/13/24 intramuscular oil #3 mL pantoprazole 40 mg tablet,delayed 40 mg PO BID 6 weeks #84 tabs 01/12/25 release (Protonix) meloxicam 15 mg tablet 15 mg PO DAILY 90 days #90 t abs 01/22/25 Allergies Allergy/AdvReac Type Severity Reaction Status Date / Time No Known Allergies Allergy Verified 01/12/25 09:04 [facility] ED 2 [facility]: Medical History Flexor tenosynovitis of finger Polycythemia Polyarthralgia History of kidney stones Surgical History History of ureter stent Hx of facial fracture repair History of nasal surgery Family History Father Diabetes Hypertension Grandfather Diabetes Hypertension Cancer prostate Grandmother Cancer Hypertension Mother Hypertension Denies family history of Clotting disorder Bleeding disorder Social History Smoking and tobacco/nicotine status: never used tobacco/nicotine Second hand smoke exposure: No Alcohol intake: never Substance/Drug Use: never Caregiver/support person: Yes Lives independently: Yes Household members: spouse Marital status: service: No Current occupational status: employed Pets and animals: Yes Current gender identity: Male Special ely needs: No Agree to transfusion: Yes Course 2 Vital Signs: Vital signs: Vital Signs Temperature 98.0 F 01/31/25 18:59 Pulse Rate 77 01/31/25 22:48 Respiratory Rate 16 01/31/25 22:48 Blood Pressure 122/87 01/31/25 22:48 Pulse Oximetry 97 01/31/25 22:48 Oxygen Delivery Me thod Room Air 01/31/25 21:14 MDM - Chest Pain Medical Decision Making I reviewed all of the EKGs which were obtained by the jacquard plate maker and route. One of the EKGs was obtained while the patient was having active chest pain. All of these EKGs were normal. EKG here in the emergency department is normal. Chest x-ray normal. CBC and CMP normal. BNP less than 36. Troponin 7. Repeat troponin is completed. 2-hour delta 0.65. BNP is nondetectable. Patient will be allowed home. Lab Data 01/31/25 19:10 01/31/25 19:10 Radiology Impressions Chest X-Ray 01/31/25 19:08 IMPRESSION: Subtle left infrahilar atelectasis/infiltrate. Laboratory Results WBC 9.21 10^3/uL (3.29-11.43) 01/31/25 19:10 RBC 5.07 10^6/uL (3.85-5.65) 01/31/25 19:10 Hgb 15.70 g/dL (11.27-16.99) 01/31/25 19:10 Hct 44.5 % (37-53) 01/31/25 19:10 MCV 87.8 fl (82-101) 01/31/25 19:10 MCH 31.0 pg (27-33) 01/31/25 19:10 MCHC 35.3 g/dL (30-55) 01/31/25 19:10 RDW 12.4 % (12.1-15.1) 01/31/25 19:10 Plt Count 184 10^3/cmm (157-399) 01/31/25 19:10 MPV 8.5 fL (7.4-10.4) 01/31/25 19:10 Neut % (Auto) 60.3 % 01/31/25 19:10 Lymph % (Auto) 30.8 % 01/31/25 19:10 Gregory % (Auto) 6.5 % 01/31/25 19:10 Eos % (Auto) 1.3 % 01/31/25 19:10 Baso % (Auto) 0.8 % 01/31/25 19:10 Neut # (Auto) 5.55 10^3/uL (1.8-7.7) 01/31/25 19:10 Lymph # (Auto) 2.8 10^3/uL (0.8-4.8) 01/31/25 19:10 Gregory # (Auto) 0.6 10^3/uL (0.2-0.9) 01/31/25 19:10 Eos # (Auto) 0.1 10^3/uL (0.0-0.8) 01/31/25 19:10 Baso # (Auto) 0.1 10^3/uL (0.0-0.1) 01/31/25 19:10 Nucleated RBC % (auto) 0 % 01/31/25 19:10 Nucleated RBCs # 0.0 /100WBC 01/31/25 19:10 PT 12.60 SECONDS (12.1-14.9) 01/31/25 19:10 INR 0.89 (0.8-1.2) 01/31/25 19:10 APTT 29.6 SECONDS (23.9-36.7) 01/31/25 19:10 Sodium 139 mmol/L (136-145) 01/31/25 19:10 Potassium 3.7 mmol/L (3.5-5.1) 01/31/25 19:10 Chloride 105 mmol/L (98-107) 01/31/25 19:10 Carbon Dioxide 20 mmol/L (22-29) L 01/31/25 19:10 Anion Gap 17.7 (5-19) 01/31/25 19:10 BUN 13 mg/dL (6-20) 01/31/25 19:10 Creatinine 1.5 mg/dL (0.7-1.2) H 01/31/25 19:10 GFR Calculation 49.5 mL/min (90-130) L 01/31/25 19:10 Glucose 95 mg/dL (65-115) 01/31/25 19:10 Calculated Osmolality 288 mOsm/kg (285-295) 01/31/25 19:10 Calcium 9.6 mg/dL (8.5-10.5) 01/31/25 19:10 Total Bilirubin 0.6 mg/dL (0.15-1.2) 01/31/25 19:10 AST 22 U/L (0-40) 01/31/25 19:10 ALT 21 U/L (0-41) 01/31/25 19:10 Alkaline Phosphatase 70 U/L (40-130) 01/31/25 19:10 Troponin T Baseline 7 ng/L (0-15) 01/31/25 19:10 Troponin T 120 Minute 7.65 ng/L (0-15) 01/31/25 21:33 Delta Troponin T 0.65 ABS# (0-10) 01/31/25 21:33 NT-Pro-B Natriuret Pep < 36 pg/mL (0-125) 01/31/25 19:10 Total Protein 6.8 g/dL (6.6-8.7) 01/31/25 19:10 Albumin 4.6 g/dL (3.5-5.2) 01/31/25 19:10 Globulin 2.2 g/dL (1.3-4.6) 01/31/25 19:10 Lipase 39 U/L (13-60) 01/31/25 19:10 All radiology interpretation(s) finalized by discharge Discharge Plan Discharge Patient Disposition: Home Clinical Impression: Chest pain Qualifiers: Chest pain type: unspecified Qualified Code(s): R07.9 - Chest pain, unspecified Condition: Stable Prescriptions: No Action diphenhydramine-acetaminophen [Tylenol PM Extra Strength] 25-500 mg tablet 1 tab PO BEDTIME PRN (Reason: Pain) sertraline 100 mg tablet 150 mg PO DAILY Qty: 135 5RF pantoprazole [Protonix] 40 mg tablet,delayed release (DR/EC) 40 mg PO BID 42 Days Qty: 84 1RF lisinopril 2.5 mg tablet 2.5 mg PO DAILY 90 Days Qty: 90 1RF testosterone cypionate 200 mg/mL oil 100 mg SUBCUT .Q 4 Weeks Qty: 3 5RF meloxicam 15 mg tablet 15 mg PO DAILY 90 Days Qty: 90 0RF Discharge Orders: Discharge ED (Routine); Ordered 01/31/25 Ordered By: Marino Sinha Referrals: Marisel Dutton FNP [Primary Care Provider] - Patient Instructions: Chest Pain (ED) Activity Restrictions/Additional Instructions: Follow-up with your primary care provider as soon as possible for recheck and further evaluation. You will likely need a cardiac stress test ordered. Take 1 baby aspirin per day. Print Language: Bur[place]ian Coding Level of Care Code ED Variety Saw Operator for Lydia Agudelo
[2025-01-31 22:16] LABS: Troponin 5 2HR 7.65 ng/L (0-15); Troponin 5 2HR Delta 0.65 ABS# (0-10)
[2025-01-31 22:48] VITALS: BP 122/87; PULSE 77; RESP 16; O2SAT 97
== END 2025-01-31 22:37 | disposition home or self-care (01) ==
PROVIDERS: Emergency Provider Emergency Medicine; PCP Nurse Practitioner Family
DX: R07.9 Chest pain, unspecified (principal)
CPT/HCPCS: 36415; 71045; 80053; 83690; 83880; 84484; 85025; 85610; 85730; 93005; 99285

== ENCOUNTER → 2025-02-04 09:01 | Outpatient (BNVA) | payer OTHER, SELFPAY | PROVIDERS: PCP Nurse Practitioner Family; Visit Provider Surgery | DX: R10.9 Unspecified abdominal pain (principal); R19.7 Diarrhea, unspecified | CPT/HCPCS: 36415; 86003; 86008; 86140 ==

== ENCOUNTER 2025-02-12 08:30 | Outpatient (CLI) | payer OTHER, SELFPAY | END 2025-02-12 08:31 | disposition home or self-care (01) | LOC: LAB 08:32 | PROVIDERS: PCP Nurse Practitioner Family; Visit Provider Surgery | DX: R10.9 Unspecified abdominal pain (principal); R19.7 Diarrhea, unspecified | CPT/HCPCS: 83630; 83993; 87177; 87209 ==

== ENCOUNTER 2025-02-19 06:49 | Day surgery (SDC) | payer OTHER, SELFPAY ==
[2025-02-19 06:59] VITALS: BP 134/95; PULSE 76; RESP 18; TEMP 36.3; O2SAT 97; BMI 28.4
--- NOTE | 2025-02-19 07:03 | W.PM.OPSUD ---
Surgery/Procedure H&P Update DATE OF PROCEDURE: February 19, 2025 DATE H&P PERFORMED: 02/04/25 H&P UPDATE INFORMATION: I have reviewed H&P completed within last 30 days, I have examined patient prior to procedure, No changes to prior documentation, Changes to prior documentation as noted here and Risks and benefits of the procedure reviewed PLANNED PROCEDURE: Operation Date: 02/19/25 08:20 Proposed Procedures p EGD 45608 R10.9 R11.0(Not Applicable) - Matheus Finn MD
--- NOTE | 2025-02-19 07:43 | ANES.PREANE2 ---
Pre-Anesthetic Assessment Height/Weight: Height 1.8 m Weight 92.533 kg Temp Pulse Resp BP Pulse Ox O2 Del Method 97.3 F L 76 18 134/95 97 Room Air 02/19/25 06:59 02/19/25 06:59 02/19/25 06:59 02/19/25 06:59 02/19/25 06:59 02/19/25 06:59 Preop Diagnosis: nausea & abdominal pain Operation Date: 02/19/25 08:20 Proposed Procedures p EGD 08859 R10.9 R11.0(Not Applicable) - Matheus Finn MD Familial anesthetic complications: none Was Beta Cindy taken within 24 hours: N/A Was Clonidine taken within 24 hours: N/A Last intake: Intake Last Liquid Date 02/18/25 Last Liquid Time 22:30 Last Solid Date 02/18/25 Last Solid Time 20:00 Social No alcohol and No tobacco Exam alert, oriented x 3 and clear to auscultation bilaterally Airway Cervical ROM: Other (pt states it is uncomfortable for him to extend his neck completely, his ROM appears to be normal and unlimited. ) Mallampati: Class I Comments: Comments: missing front uppers History/ROS No significant history except as noted Pulmonary None reported CV/HEM Hypertension None reported Hepatic None reported GI Gastroesophageal Reflux Disease Metabolic None reported Musc/skel chronic neck pain Neuropsych None reported Anesthetic Plan ASA status: 2 Anesthesia: Anesthesia Evaluation and MAC Risk of > 500 ml blood loss (7ml/kg in children): No Medications/Allergies Home Medications ?Medication ?Instructions ?Recorded ?Confirmed ?Last Taken ?Type diphenhydramine 25 1 tab PO BEDTIME PRN Pain 04/07/21 02/16/25 02/15/25 History mg-acetaminophen 500 mg tablet (Tylenol PM Extra Strength) sertraline 100 mg tablet 150 mg (1.5 x 100 mg) PO DAILY 07/17/24 02/16/25 02/16/25 Rx #135 tabs lisinopril 2.5 mg tablet 2.5 mg PO DAILY 90 days #90 tabs 08/13/24 02/16/25 02/18/25 19:30 Rx testosterone cypionate 200 mg/mL 100 mg (0.5 mL) SUBCUT .Q 4 Weeks 08/13/24 02/16/25 02/11/25 Rx intramuscular oil #3 mL pantoprazole 40 mg tablet,delayed 40 mg PO BID 6 weeks #84 tabs 01/12/25 02/16/25 02/16/25 Rx release (Protonix) meloxicam 15 mg tablet 15 mg PO DAILY 90 days #90 tabs 02/18/25 02/18/25 19:30 Rx Allergies Allergy/AdvReac Type Severity Reaction Status Date / Time No Known Allergies Allergy Verified 02/04/25 08:19 [facility] Anesthesia Medical History Flexor tenosynovitis of finger Polycythemia Polyarthralgia History of kidney stones Surgical History History of ureter stent Hx of facial fracture repair History of nasal surgery Family History Father Diabetes Hypertension Grandfather Diabetes Hypertension Cancer prostate Grandmother Cancer Hypertension Mother Hypertension Denies family history of Clotting disorder Bleeding disorder Social History Smoking and tobacco/nicotine status: never used tobacco/nicotine Second hand smoke exposure: No Alcohol intake: never Substance/Drug Use: never Caregiver/support person: Yes Lives independently: Yes Household members: spouse Marital status: service: No Current occupational status: employed Pets and animals: Yes Current gender identity: Male Special ely needs: No Agree to transfusion: Yes Data Anesthesia Cardiac Studies: No Data to Display
[2025-02-19 08:37] VITALS: BP 114/82; PULSE 73; RESP 18; TEMP 36.4; O2SAT 93
[2025-02-19 09:16] VITALS: BP 124/84; PULSE 76; RESP 18; O2SAT 97
--- NOTE | 2025-02-19 09:18 | ANE.PACU2 ---
Inpatient post-anesthesia follow up: Airway intact: Yes Vital signs: Temperature 97.5 F Pulse Rate 76 Respiratory Rate 18 Blood Pressure 124/84 Pulse Oximetry 97 Oxygen Delivery Me thod Room Air Oxygen Flow Rate Fraction of Inspir ed Oxygen Hydration adequate: Yes Nausea and vomiting: No Pain level: 1 Mental status: Baseline
== END 2025-02-19 09:18 | disposition home or self-care (01) ==
PROVIDERS: PCP Nurse Practitioner Family; Visit Provider Surgery
PROC: 0DJ08ZZ Inspection of Upper Intestinal Tract, Via Natural or Artificial Opening Endoscopic (ICD-10-PCS; principal; 2025-02-19 08:20)
DX: K29.30 Chronic superficial gastritis without bleeding (principal); K29.00 Acute gastritis without bleeding; K21.00 Gastro-esophageal reflux disease with esophagitis, without bleeding; I10 Essential (primary) hypertension; Z79.899 Other long term (current) drug therapy
CPT/HCPCS: 43239; 88305; 88342; J2704; J3490; J9999

== ENCOUNTER → 2025-03-03 11:19 | Outpatient (BNVA) | payer OTHER, SELFPAY | PROVIDERS: PCP Nurse Practitioner Family; Visit Provider Nurse Practitioner Family | DX: R79.89 Other specified abnormal findings of blood chemistry (principal); I10 Essential (primary) hypertension | CPT/HCPCS: 80053; 80061; 82040; 84270; 84403; 85025 ==